=== PATIENT | male | born 2000 | race Caucasian/White ===

== ENCOUNTER 2023-04-04 19:58 | Inpatient (IN) ==
[2023-04-04 20:33] LABS: Basophils # (auto) 0.03 K/uL (0-0.2); Basophils % (auto) 0.4 %; Hemoglobin 13.6 g/dl (14.0-18.0); Immature Granulocytes # (auto) 0.08 K/uL (0.01-0.20); Lymphocytes # (auto) 3.74 K/uL (1.2-3.4); Mean Corpuscular Hemoglobin 30.3 pg (25.0-34.0); Mean Corpuscular Volume 89.1 fL (80.0-100.0); Mean Platelet Volume 10.9 fL (9.4-12.4); Monocytes # (auto) 0.43 K/uL (0.11-0.59); Monocytes % (auto) 5.2 %; Neutrophils # (auto) 4.03 K/uL (1.40-6.50); Neutrophils % (auto) 48.4 %; Platelet Count 360 K/uL (130-400); RDW Standard Deviation 38.9 fL (36.4-46.3); Red Blood Count 4.49 M/uL (4.70-6.10); White Blood Count 8.31 K/ul (4.8-10.8)
[2023-04-04] MEDS ORDERED: SODIUM BICARB 8.4% INJ 50 MEQ/50 ML SYR IV STA ×4 (20:40→23:11)
--- NOTE | 2023-04-04 20:40 | Emergency Department Note ---
Impression & Plan Seizure, Overdose, Electrolyte abnormality ED Provider Note NAME: RONNIE HATHAWAY III AGE: 22 SEX: M : 2000 ARRIVES VIA: Ambulance INFORMANT: Patient ED PROVIDER(S): Jonathan Paul DO CHIEF COMPLAINT: Seizure HPI: Patient is a 20-year-old male who presents to the ER for seizure. He notes that this occurred just prior to arrival. He was sitting on the couch with his girlfriend and had a 6-minute tonic-clonic seizure. She notes he was foaming at the mouth. He had a postictal phase and was brought in by EMS. He admits to a mild headache. No change in vision. No chest pain or shortness of breath. He had no symptoms preceding or following the incident other than feeling tired and little bit of headache now. No weakness or numbness in the arms or legs. No other exacerbating or remitting factors. He denies taking any medications with the exception of kratom which he notes he takes about tablespoon 3 times a day. PAST MEDICAL HISTORY:See Below PAST SURGICAL HISTORY:See Below FAMILY HISTORY:See Below SOCIAL HISTORY:See Below HOME MEDICATIONS:See Below ALLERGIES:See Below VITALS:See Below PHYSICAL EXAMINATION: GENERAL: Sitting up in bed, alert, well appearing, well nourished, no distress, non-toxic EYE EXAM: normal conjunctiva. PERRL and EOM's intact. OROPHARYNX: no exudate, no erythema, lips, buccal mucosa, and tongue normal and mucous membranes are moist NECK: supple, no nuchal rigidity, no adenopathy, non-tender LUNGS: Clear to auscultation. Normal chest wall mechanics HEART: no murmurs, S1 normal and S2 normal ABDOMEN: abdomen soft, non-tender, normo-active bowel sounds, no masses, no rebound or guarding. BACK: Back is symmetrical on inspection and there is no deformity, no midline tenderness, no CVA tenderness. SKIN: no rashes and no bruising UPPER EXTREMITIES: upper extremities are grossly normal. LOWER EXTREMITIES: No pitting edema. NEURO EXAM: Normal sensorium, cranial nerves II-XII intact, normal speech, no weakness of arms, no weakness of legs. No drift. Finger to nose intact. Gross sensation intact. MEDICAL DECISION MAKING: Patient is a 22-year-old male who presents ER for the above-stated complaint. IV was established blood work was obtained. Initial EKG shows a prolonged QRS as well as QTc with tachycardia. With this I consulted poison control. They recommended 2 g of IV magnesium as well as 2 Amps of bicarb. Patient was given 2 L of IV fluids as well. Labs resulted and showed no significant leukocytosis or anemia. BMP with mild hypokalemia 3.1. LFTs bilirubin and troponin was negative. UA was clean. Tox was negative. Alcohol negative. COVID-negative. VBG with a pH of 7.4 repeat EKG showed improvement of the QTc but the QRS was still about 140. Heart rate did trend down. Rediscussed with [facility] control and they recommended an amp of bicarb every 5 minutes for 2-3 episodes. Following this being placed on a bicarb drip. Patient was given 40 mill equivalents of potassium orally as well as 20 mill equivalents to the IV. Consult the hospitalist for further evaluation management treatment. Discussed with Terry from the ICU. Repeat EKG showed a stable QRS duration. Terry will place the bicarb drip. Patient was admitted for further work-up. They did note they are looking for pH of 7.5-7.55. Once he goes out of this range patient should be rediscussed with poison control and likely stop bicarb. Triage Nursing notes reviewed. Limited review of prior medical records performed Vital Signs: reviewed and remarkable for HTN and tachy Differential diagnosis: Differential diagnosis includes etiologies such as infection, hypoglycemia, electrolyte abnormalities, cardiac sources, intracerebral event, trauma, toxicologic, neurologic, as well as others were entertained. ER treatment provided: See below Diagnostics interpreted by me include EKG and cardiac monitoring as listed below: -Cardiac Monitoring: An order was placed for continuous cardiac monitoring. The monitor shows a rate of 110 with sinus rhythm. -ECG: Sinus tachycardia rate of 113 Normal axis Right bundle branch block Prolonged QTc at 554 EKG #2 Sinus tachycardia rate of 109 Normal axis Right bundle branch block QTc 498 QRS 144 EKG #3 Sinus rhythm rate of 99 Normal axis QRS 140 QTc 508 Right bundle branch block -Laboratory studies:Interpreted by me as stated above in MDM and shown below. Imaging studies: Xrays: As interpreted by me:none CTs show: CT head per my read showed no obvious large bleed CT head per radiology showed no acute pathology Consultation(s): Discussed with the hospitalist, frontend engineer and [facility] poison control as described above Procedures:none Critical Care: I have personally spent 90 minutes of critical care time in the direct management of this patient. This includes bedside care, interpretation of diagnostic studies, and testing, discussion with consultants, patient, and family members, and other required patient management activities. This 90 minutes is in excess of all separately billable procedures. Past Med/Surg History Social History Smoking Status: Current some day smoker Tobacco Type: E-cigarettes / Vaping Preferred Language: Urdu Feels Safe at Home: Yes Allergies Allergies Allergy/AdvReac Type Severity Reaction Status Date / Time No Known Allergies Allergy Unverified 04/04/23 21:31 Home Meds Home Medications Medication Instructions Recorded Confirmed Herbal Dragon Powder 1 dose PO DAILY 04/04/23 04/04/23 Results & Data (ED) Vital Signs Vital Signs - 24 hr 04/04/23 20:03 04/04/23 20:06 04/04/23 20:14 Temperature 37 C Temperature Source Oral Pulse Rate 118 H 115 H Pulse Rate [Apical] 117 H Respiratory Rate 18 18 Respiratory Effort / Characteristics Non-Labored Spontaneous Non-Labored Spontaneous Respiratory Depth Normal Normal Blood Pressure 157/110 H Blood Pressure [Right Arm] 162/94 H Blood Pressure Mean 125 Blood Pressure Mean [Right Arm] 116 Blood Pressure Position Lying Blood Pressure Position [Right Arm] Lying Pulse Oximetry 99 99 Oxygen Delivery Method Room Air Room Air Sepsis Recent Fever Within 48 Hours No Sepsis New/Unexplained Change in Mental Status No Sepsis Action Taken by Nursing No Action Required 04/04/23 21:54 04/04/23 23:41 04/05/23 00:13 Temperature Temperature Source Pulse Rate Pulse Rate [Apical] 109 H 102 H 93 H Respiratory Rate 18 21 16 Respiratory Effort / Characteristics Non-Labored Spontaneous Respiratory Depth Normal Blood Pressure Blood Pressure [Right Arm] 145/89 H 143/85 H 132/89 Blood Pressure Mean Blood Pressure Mean [Right Arm] 107 104 103 Blood Pressure Position Blood Pressure Position [Right Arm] Lying Pulse Oximetry 99 99 96 Oxygen Delivery Method Room Air Room Air Room Air Sepsis Recent Fever Within 48 Hours Sepsis New/Unexplained Change in Mental Status Sepsis Action Taken by Nursing Laboratory Data 04/04/23 20:05 04/04/23 20:05 Lab Results 04/04/23 04/04/23 04/04/23 Range/Units 20:05 20:05 21:19 WBC 8.31 (4.8-10.8) K/ul RBC 4.49 L (4.70-6.10) M/uL Hgb 13.6 L (14.0-18.0) g/dl Hct 40.0 L (42.0-52.0) % MCV 89.1 (80.0-100.0) fL MCH 30.3 (25.0-34.0) pg MCHC 34.0 (32.0-36.0) g/dL RDW Std Deviation 38.9 (36.4-46.3) fL RDW Coeff of Nathalia 12.0 (11.5-14.5) % Plt Count 360 (130-400) K/uL MPV 10.9 (9.4-12.4) fL Immature Gran % (Auto) 1.0 % Neut % (Auto) 48.4 % Lymph % (Auto) 45.0 % Cross % (Auto) 5.2 % Eos % (Auto) 0.0 % Baso % (Auto) 0.4 % Neut # (Auto) 4.03 (1.40-6.50) K/uL Lymph # (Auto) 3.74 H (1.2-3.4) K/uL Cross # (Auto) 0.43 (0.11-0.59) K/uL Eos # (Auto) 0.00 (0-0.50) K/uL Baso # (Auto) 0.03 (0-0.2) K/uL Immature Gran # (Auto) 0.08 (0.01-0.20) K/uL VBG pH (7.36-7.41) VBG pCO2 (38-50) mmHg VBG pO2 mmHg VBG HCO3 mmol/L VBG O2 Saturation % VBG Base Excess mEq/L Sodium 140 (136-145) mmol/L Potassium 3.1 L (3.5-5.1) mmol/L Chloride 102 (98-107) mmol/L Carbon Dioxide 25 (21-32) mmol/L Anion Gap 13 H (3-11) BUN 10 (6-23) mg/dl Creatinine 0.94 (0.6-1.4) mg/dl Est Cr Clr Drug Dosing 90.8 ml/min Est GFR ( Amer) 132.9 ml/min Est GFR (Non-Af Amer) 114.6 ml/min BUN/Creatinine Ratio 10.6 (10-20) Glucose 127 H (70-99(Fasting)) mg/dl Calcium 8.8 (8.6-10.3) mg/dl Magnesium 1.8 (1.7-2.4) mg/dl Total Bilirubin 0.5 (0.2-1.0) mg/dl AST 16 (13-39) U/L ALT 10 (7-52) U/L Alkaline Phosphatase 67 (34-104) U/L Total Creatine Kinase 74 (30-223) U/L Troponin I High Sens 3.1 (0-20) pg/ml Total Protein 7.8 (6.0-8.3) gm/dl Albumin 5.1 H (3.4-5.0) gm/dl Globulin 2.7 (2.5-4.0) gm/dl Albumin/Globulin Ratio 1.9 (0.9-2) Urine Color Urine Appearance (Clear) Urine pH (4.5-7.5) Ur Specific [place] (1.000-1.030) Urine Protein (Negative) Urine Glucose (UA) (Negative) Urine Ketones (Negative) Urine Blood (Negative) Urine Nitrite (Negative) Urine Bilirubin (Negative) Urine Urobilinogen (Negative) Ur Leukocyte Esterase (Negative) Salicylates (3.0-30) mg/dl Urine Opiates Screen (Neg) Ur Methadone, Qual (Neg) Acetaminophen (10-30) ug/ml Urine Barbiturates (Neg) Ur Phencyclidine (PCP) (Neg) U Amphetamin/Meth Scrn (Neg) MDMA (Ecstasy) Screen (Neg) U Benzodiazepines Scrn (Neg) Ur Cocaine Metabolite (Neg) U Marijuana (THC) Screen (Neg) Ethyl Alcohol mg/dL (<10.0) mg/dl SARS-CoV-2, RNA, NAAT NEGATIVE (NEGATIVE) 04/04/23 04/04/23 04/04/23 Range/Units 22:29 22:29 22:29 WBC (4.8-10.8) K/ul RBC (4.70-6.10) M/uL Hgb (14.0-18.0) g/dl Hct (42.0-52.0) % MCV (80.0-100.0) fL MCH (25.0-34.0) pg MCHC (32.0-36.0) g/dL RDW Std Deviation (36.4-46.3) fL RDW Coeff of Nathalia (11.5-14.5) % Plt Count (130-400) K/uL MPV (9.4-12.4) fL Immature Gran % (Auto) % Neut % (Auto) % Lymph % (Auto) % Cross % (Auto) % Eos % (Auto) % Baso % (Auto) % Neut # (Auto) (1.40-6.50) K/uL Lymph # (Auto) (1.2-3.4) K/uL Cross # (Auto) (0.11-0.59) K/uL Eos # (Auto) (0-0.50) K/uL Baso # (Auto) (0-0.2) K/uL Immature Gran # (Auto) (0.01-0.20) K/uL VBG pH 7.43 H (7.36-7.41) VBG pCO2 49 (38-50) mmHg VBG pO2 50 mmHg VBG HCO3 33 mmol/L VBG O2 Saturation 80.6 % VBG Base Excess 6.9 mEq/L Sodium (136-145) mmol/L Potassium (3.5-5.1) mmol/L Chloride (98-107) mmol/L Carbon Dioxide (21-32) mmol/L Anion Gap (3-11) BUN (6-23) mg/dl Creatinine (0.6-1.4) mg/dl Est Cr Clr Drug Dosing ml/min Est GFR ( Amer) ml/min Est GFR (Non-Af Amer) ml/min BUN/Creatinine Ratio (10-20) Glucose (70-99(Fasting)) mg/dl Calcium (8.6-10.3) mg/dl Magnesium (1.7-2.4) mg/dl Total Bilirubin (0.2-1.0) mg/dl AST (13-39) U/L ALT (7-52) U/L Alkaline Phosphatase (34-104) U/L Total Creatine Kinase (30-223) U/L Troponin I High Sens (0-20) pg/ml Total Protein (6.0-8.3) gm/dl Albumin (3.4-5.0) gm/dl Globulin (2.5-4.0) gm/dl Albumin/Globulin Ratio (0.9-2) Urine Color Urine Appearance (Clear) Urine pH (4.5-7.5) Ur Specific [place] (1.000-1.030) Urine Protein (Negative) Urine Glucose (UA) (Negative) Urine Ketones (Negative) Urine Blood (Negative) Urine Nitrite (Negative) Urine Bilirubin (Negative) Urine Urobilinogen (Negative) Ur Leukocyte Esterase (Negative) Salicylates < 3.0 L (3.0-30) mg/dl Urine Opiates Screen (Neg) Ur Methadone, Qual (Neg) Acetaminophen < 3 L (10-30) ug/ml Urine Barbiturates (Neg) Ur Phencyclidine (PCP) (Neg) U Amphetamin/Meth Scrn (Neg) MDMA (Ecstasy) Screen (Neg) U Benzodiazepines Scrn (Neg) Ur Cocaine Metabolite (Neg) U Marijuana (THC) Screen (Neg) Ethyl Alcohol mg/dL < 10.0 (<10.0) mg/dl SARS-CoV-2, RNA, NAAT (NEGATIVE) 04/04/23 04/04/23 Range/Units Unknown Unknown WBC (4.8-10.8) K/ul RBC (4.70-6.10) M/uL Hgb (14.0-18.0) g/dl Hct (42.0-52.0) % MCV (80.0-100.0) fL MCH (25.0-34.0) pg MCHC (32.0-36.0) g/dL RDW Std Deviation (36.4-46.3) fL RDW Coeff of Nathalia (11.5-14.5) % Plt Count (130-400) K/uL MPV (9.4-12.4) fL Immature Gran % (Auto) % Neut % (Auto) % Lymph % (Auto) % Cross % (Auto) % Eos % (Auto) % Baso % (Auto) % Neut # (Auto) (1.40-6.50) K/uL Lymph # (Auto) (1.2-3.4) K/uL Cross # (Auto) (0.11-0.59) K/uL Eos # (Auto) (0-0.50) K/uL Baso # (Auto) (0-0.2) K/uL Immature Gran # (Auto) (0.01-0.20) K/uL VBG pH (7.36-7.41) VBG pCO2 (38-50) mmHg VBG pO2 mmHg VBG HCO3 mmol/L VBG O2 Saturation % VBG Base Excess mEq/L Sodium (136-145) mmol/L Potassium (3.5-5.1) mmol/L Chloride (98-107) mmol/L Carbon Dioxide (21-32) mmol/L Anion Gap (3-11) BUN (6-23) mg/dl Creatinine (0.6-1.4) mg/dl Est Cr Clr Drug Dosing ml/min Est GFR ( Amer) ml/min Est GFR (Non-Af Amer) ml/min BUN/Creatinine Ratio (10-20) Glucose (70-99(Fasting)) mg/dl Calcium (8.6-10.3) mg/dl Magnesium (1.7-2.4) mg/dl Total Bilirubin (0.2-1.0) mg/dl AST (13-39) U/L ALT (7-52) U/L Alkaline Phosphatase (34-104) U/L Total Creatine Kinase (30-223) U/L Troponin I High Sens (0-20) pg/ml Total Protein (6.0-8.3) gm/dl Albumin (3.4-5.0) gm/dl Globulin (2.5-4.0) gm/dl Albumin/Globulin Ratio (0.9-2) Urine Color Yellow Urine Appearance Clear (Clear) Urine pH 8.5 H (4.5-7.5) Ur Specific [place] 1.007 (1.000-1.030) Urine Protein Negative (Negative) Urine Glucose (UA) Negative (Negative) Urine Ketones Negative (Negative) Urine Blood Negative (Negative) Urine Nitrite Negative (Negative) Urine Bilirubin Negative (Negative) Urine Urobilinogen Negative (Negative) Ur Leukocyte Esterase Negative (Negative) Salicylates (3.0-30) mg/dl Urine Opiates Screen Neg (Neg) Ur Methadone, Qual Neg (Neg) Acetaminophen (10-30) ug/ml Urine Barbiturates Neg (Neg) Ur Phencyclidine (PCP) Neg (Neg) U Amphetamin/Meth Scrn Neg (Neg) MDMA (Ecstasy) Screen Neg (Neg) U Benzodiazepines Scrn Neg (Neg) Ur Cocaine Metabolite Neg (Neg) U Marijuana (THC) Screen Neg (Neg) Ethyl Alcohol mg/dL (<10.0) mg/dl SARS-CoV-2, RNA, NAAT (NEGATIVE) Administered Medications Discontinued Medications Magnesium Sulfate/Dextrose (Magnesium Sulfate / D5w) 1 gm in 100 mls @ 100 mls/hr IV Q1H QIAN Stop: 04/04/23 22:39 Last Infusion: 04/04/23 23:25 Dose: 0 mls/hr Documented By: Admin: 04/04/23 22:19 Dose: 100 mls/hr Documented By: Infusion: 04/04/23 22:18 Dose: 0 mls/hr Documented By: Admin: 04/04/23 21:16 Dose: 100 mls/hr Documented By: CC Sodium Chloride (Nss 1000ml) 2,000 mls @ 999 mls/hr IV .Q2H1M ONE Stop: 04/04/23 22:44 Last Infusion: 04/05/23 00:13 Dose: 0 mls/hr Documented By: Admin: 04/04/23 21:12 Dose: 999 mls/hr Documented By: CC Potassium Chloride (K Alphonso / Wtr) 10 meq in 100 mls @ 100 mls/hr IV Q1H QIAN Stop: 04/05/23 00:14 Last Admin: 04/05/23 00:11 Dose: 100 mls/hr Documented By: Infusion: 04/04/23 23:25 Dose: 0 mls/hr Documented By: Admin: 04/04/23 22:21 Dose: 100 mls/hr Documented By: CC Potassium Chloride (Potassium Chloride Crtab 20 Meq Tabcr) 40 meq PO NOW STA Stop: 04/04/23 22:10 Last Admin: 04/04/23 22:20 Dose: 40 meq Documented By: CC Sodium Bicarbonate (Sodium Bicarb 8.4% Inj 50 Meq/50 Ml Syr) 50 meq IV NOW STA Stop: 04/04/23 20:41 Last Admin: 04/04/23 21:12 Dose: 50 meq Documented By: CC Sodium Bicarbonate (Sodium Bicarb 8.4% Inj 50 Meq/50 Ml Syr) 50 meq IV NOW STA Stop: 04/04/23 20:55 Last Admin: 04/04/23 21:18 Dose: 50 meq Documented By: CC Sodium Bicarbonate (Sodium Bicarb 8.4% Inj 50 Meq/50 Ml Syr) 50 meq IV NOW STA Stop: 04/04/23 23:10 Last Admin: 04/04/23 23:36 Dose: 50 meq Documented By: ASW Sodium Bicarbonate (Sodium Bicarb 8.4% Inj 50 Meq/50 Ml Syr) 50 meq IV NOW STA Stop: 04/04/23 23:12 Last Admin: 04/04/23 23:43 Dose: 50 meq Documented By: ASW Imaging Data Radiologist's Impression: Head CT 04/04/23 20:41 Exam(s): CT HEAD Without Contrast EXAM: CT Head Without Intravenous Contrast CLINICAL HISTORY: Reason for exam: liu. TECHNIQUE: Axial computed tomography images of the head/brain without intravenous contrast. CTDI is 38.78 mGy and DLP is 546.36 mGy-cm. Automated exposure control was utilized for the study. A dose lowering technique was utilized adhering to the principles of ALARA. COMPARISON: No relevant prior studies available. FINDINGS: No acute intracranial hemorrhage. No midline shift or mass effect. The territorial castañeda-white matter differentiation is maintained throughout. The ventricles and sulci are commensurate with age. The visualized orbits appear grossly unremarkable. The calvarium is intact. The visualized paranasal sinuses and mastoid air cells are grossly clear. IMPRESSION: No acute intracranial hemorrhage, midline shift, or mass effect. Electronically signed by: Stewart Tapia MD 04/04/23 22:12 PM Discharge Plan Visit Data Chief Complaint: Seizure Stated Complaint: SEIZURE ED Provider: Jonathan Paul Discharge Problem: Seizure, Overdose, Electrolyte abnormality Patient Disposition: Admitted As Inpatient Discharge Instructions Interventions: ED Discharge Assessment Last Done: 04/05/23 00:25 Forms Stand Alone Forms: [employer] Prescriptions Prescriptions: No Action Herbal Dragon Powder 1 dose PO DAILY Referrals Referrals: PCP,NO [Primary Care Provider] -
[2023-04-04] MEDS ORDERED: SODIUM CHLORIDE 0.9% 1000ML 2,000 ML IV ONE (20:44)
[2023-04-04 21:01] LABS: Albumin Level 5.1 gm/dl (3.4-5.0); Bilirubin,Total 0.5 mg/dl (0.2-1.0); Calcium 8.8 mg/dl (8.6-10.3); Potassium 3.1 mmol/L (3.5-5.1)
[2023-04-04 21:07] LABS: Albumin Globulin Ratio 1.9 (0.9-2); BUN Creatinine Ratio 10.6 (10-20); Creatinine Clr Calc Pharmacy 90.8 ml/min; Est GFR (African American) 132.9 ml/min; Est GFR (Non-African American) 114.6 ml/min; Globulin 2.7 gm/dl (2.5-4.0); Total Protein 7.8 gm/dl (6.0-8.3)
[2023-04-04] MEDS: MAGNESIUM SULFATE / D5W 1 GM/100 ML BAG IV SCH ×2 (21:16→22:19)
[2023-04-04 21:37] LABS: Magnesium 1.8 mg/dl (1.7-2.4)
[2023-04-04] MEDS ORDERED: POTASSIUM CHLORIDE CRTAB 20 MEQ TABCR PO STA (22:09)
--- NOTE | 2023-04-04 22:13 | CT Scan Report ---
Exam(s): CT HEAD Without Contrast EXAM: CT Head Without Intravenous Contrast CLINICAL HISTORY: Reason for exam: liu. TECHNIQUE: Axial computed tomography images of the head/brain without intravenous contrast. CTDI is 38.78 mGy and DLP is 546.36 mGy-cm. Automated exposure control was utilized for the study. A dose lowering technique was utilized adhering to the principles of ALARA. COMPARISON: No relevant prior studies available. FINDINGS: No acute intracranial hemorrhage. No midline shift or mass effect. The territorial castañeda-white matter differentiation is maintained throughout. The ventricles and sulci are commensurate with age. The visualized orbits appear grossly unremarkable. The calvarium is intact. The visualized paranasal sinuses and mastoid air cells are grossly clear. IMPRESSION: No acute intracranial hemorrhage, midline shift, or mass effect. Electronically signed by: Stewart Tapia MD 04/04/23 22:12 PM
[2023-04-04] MEDS: POTASSIUM CHLORIDE / WTR 10 MEQ/100 ML PLCT IV SCH (22:21)
[2023-04-04 22:48] LABS: Troponin I High Sensitivity 3.1 pg/ml (0-20)
[2023-04-04 22:54] LABS: Base Excess VBG 6.9 mEq/L; HCO3 VBG 33 mmol/L; Oxygen Saturation VBG 80.6 %; PCO2 VBG 49 mmHg (38-50); PO2 VBG 50 mmHg; pH VBG 7.43 (7.36-7.41)
[2023-04-04 23:12] LABS: Acetaminophen < 3 ug/ml (10-30); Salicylate < 3.0 mg/dl (3.0-30)
[2023-04-04] MEDS ORDERED: MAGNESIUM SULFATE / D5W 1 GM/100 ML BAG IV ONE (23:45)
[2023-04-04 23:57] LABS: Appearance Urine Clear (Clear); Bilirubin Urine Negative (Negative); Blood Urine Negative (Negative); Color Urine Yellow; Glucose Urine UA Negative (Negative); Ketones Urine Negative (Negative); Leukocyte Esterase Urine Negative (Negative); Nitrite Urine Negative (Negative); Protein Urine Negative (Negative); Specific Gravity Urine 1.007 (1.000-1.030); Urobilinogen Urine Negative (Negative); pH Urine 8.5 (4.5-7.5)
--- NOTE | 2023-04-05 00:06 | Critical Care Consultation ---
Date of Consultation April 04, 2023 Assessment & Plan (1) Seizure: (2) Overdose: (3) Electrolyte abnormality: Plan Reason Critically Ill: 22 YOM admitted to ICU for reported seizure like activity following use of Kratom. ICU need for alkalinization and normalizing of ECG. Neuro - Seizure like activity, Anxiety CAM ICU: - Negative - Likely related to Kratom use may be complicated by caffeine ingestion- Kratom use is for his anxiety. - Urine tox screen is negative - Alkalinizing therapy as below - Poison control- recommendations- [place] poison control and they recommended an amp of bicarb every 5 minutes for 2-3 episodes.pH of 7.5-7.55 (DONE in EMD)- initiate NACHO3 Infusion. - on arrival to ICU PH 7.57 and QRS interval 0.134- NAHCO3 infusion until QRS interval is <01.2 and/or PH goes above 6.0. - IF QRS interval does not decrease with above therapy - consider Cardiology consultation to eval for underlying structural pathology - If further seizures occur- repeat non con head CT r/o hemorrhage and consider MRI seizure protocol. Cardiac - Abnormal ECG - Patient wit IL prolonged QRS (0.134) and QTc (462) @2351- optimize potassium and magnesium - alkalinization as above and below Respiratory - No acute needs - follow pulmonary status- Kratom may have possible pulmonary effect GI - NO acute needs - LFTs currently stable - repeat in morning- Kratom may have effects on liver function RENAL/LYTES - Hypokalemia, Hypomagnesemia - Replete K to ~ 4.0 and Mag to ~20 - Follow induced metabolic alkalosis- PH q4 and BMP q4 - - Poison control- recommendations- [place] poison control and they recommended an amp of bicarb every 5 minutes for 2-3 episodes.pH of 7.5-7.55 (DONE in EMD)- initiate NACHO3 Infusion. - on arrival to ICU PH 7.57 and QRS interval 0.134- NAHCO3 infusion until QRS interval is <01.2 and/or PH goes above 6.0. - Poison control updated - IF QRS interval does not decrease with above therapy - consider Cardiology consultation to eval for underlying structural pathology - NA level 143 on - recheck as initial contaminated - continue NAHCO3 infusion and follow q4- allow patient to drink water to thirst - If further seizures occur- repeat non con head CT r/o hemorrhage and consider MRI seizure protocol. - No acute needs ENDO - No acute needs HEME - No acute needs ID - No current concerns for infection LINES/IV ACCESS - PIV Continue use of these lines DVT PROPHYLAXIS - SCDS DISPO: ICU until ECG normalized I have personally spent 40 minutes of critical care time in the direct management of this patient. This is a life/limb threatening event. This includes time spent evaluating patient, direct bedside care, chart review, placing orders, interpretation of diagnostic studies, discussion with consultants, patient, and family members, as well as other required patient management activities. This time is exclusive of all separately billable procedures, separate from and in addition to any other critical care service time. Thank you for allowing us to participate in the care of this patient. Please refer to my attending physician's documentation for any further recommendations. History of Present Illness Reason for Consultation: Seizure and abnormal ECG following Kratom use Requesting Physician: Bean Weinstein Attending Physician: Bean Weinstein History of Present Illness 22 YOM with no reported medical history and reports no medications at home. Patient does report daily Kratom use for the past 2 years as well as caffeine intake with coffee and energy drinks to which he estimates to be 600-700 mg of Caffeine per day. Kratom use he estimates at 3 Tablespoons 2-3 times per day. He endorses no other recreational or synthetic drug use. Patient was brought in today for concerns of seizure activity while at home following Kratom use. He reports laying on the couch with his girlfriend feeling fine and was told by his girlfriend that his eyes rolled back and both his arms were straight out in front of him and secretions comming from mouth. He remembers waking up to her yelling at him to wake up. He did not bite his tongue and did not lose bowel or bladder function. Reported that this lasted 6 minutes. In the EMD the patient had routine labs performed, urine tox scree (pending), head CT and chest x-ray performed. Poison control was contacted. Recommendations were made to alkanolize the patient to PH of 7.5-7.55 with NAHCO3 pushes until the QRS complex was 0.12 or better. Optimize electrolytes- he was given oral and IV potassium as well as IV magnesium. Patient will be admitted to the ICU for following of his ECG, acid base status and neurological status. Patient is FULL CODE Allergies Allergy/AdvReac Type Severity Reaction Status Date / Time No Known Allergies Allergy Unverified 04/04/23 21:31 Home Medications Medication Instructions Recorded Confirmed Type Herbal Dragon Powder 1 dose PO DAILY 04/04/23 04/04/23 History Patient History Social History Smoking Status: Current some day smoker Tobacco Type: E-cigarettes / Vaping Second Hand Exposure: Yes; Do You Dip or Chew Tobacco: No; Tobacco Cessation Education Requested by Patient: No Hx Alcohol Use: No Hx Substance Use: Yes Last Used Substance Other:: This morning Substance Use Type Other:: Kratoarlyn Preferred Language: Ethiopian Communication Ability: Effective High Voltage Electrician Required: No Beliefs That Will Affect Care: None Current Living Situation Comment: lives w/ GF Other Information That Helps Us Care for You: No Feels Safe at Home: Yes Safety Concerns: Feels Safe At This Time Assistive Devices: None Review of Systems Review of Systems: REVIEW OF SYSTEMS: Constitutional: No fever, sweats or chills Eyes: No diplopia, no worsening or blurred vision ENT: normal hearing, no trouble swallowing Respiratory: No cough, sputum, dyspnea at rest or on exertion Cardiovascular: No chest pain, tightness or palpitations Abdomen: No pain, nausea, vomiting, diarrhea or constipation Musculoskeletal: No joint pain, calf pain, swelling Neurologic: No weakness, numbness/tingling, or balance problems Skin: No rash or itch Physical Exam Physical Exam: PHYSICAL EXAM: General: awake, alert, no apparent distress Head: Normocephalic, atraumatic ENT: PERRLA, EOMI, no pharyngeal exudate, mucous membranes moist Neuro: AAO x 3, speech clear and appropriate, strength intact bilaterally 5/5, sensation intact and equal all extremities and dermatomes, no pronator drift Chest: equal rise and fall of the chest, no accessory muscle use, no heaves or thrills, Clear to auscultation, on room air, Cardiac: Regular rate and rhythm, telemetry reviewed- sinus tachycardia, skin warm dry, cap refill <3 seconds, peripheral pulses +2 no JVD, no murmur, GI: NABS x 4 quadrants, soft, nontender to palpation, no rebound, guarding or tenderness : Spontaneously voiding, no pain, no CVA tenderness, Extremities: Normal inspection, no peripheral edema or erythema, calfs nontender to palpation Skin: no rash or erythema Results & Data Results & Data Vital Signs (Past 12 Hours) Vital Signs Temp Pulse Pulse Resp BP BP Pulse Ox 04/04/23 23:41 102 H 21 143/85 H 99 04/04/23 21:54 109 H 18 145/89 H 99 04/04/23 20:14 117 H 18 162/94 H 99 04/04/23 20:06 115 H 04/04/23 20:03 37 C 118 H 18 157/110 H 99 O2 Del Method 04/04/23 23:41 Room Air 04/04/23 21:54 Room Air 04/04/23 20:14 Room Air 04/04/23 20:06 04/04/23 20:03 Room Air Laboratory Results Abnormal lab results 04/04/23 04/04/23 04/04/23 Range/Units 20:05 20:05 22:29 RBC 4.49 L (4.70-6.10) M/uL Hgb 13.6 L (14.0-18.0) g/dl Hct 40.0 L (42.0-52.0) % Lymph # (Auto) 3.74 H (1.2-3.4) K/uL VBG pH 7.43 H (7.36-7.41) Potassium 3.1 L (3.5-5.1) mmol/L Anion Gap 13 H (3-11) Glucose 127 H (70-99(Fasting)) mg/dl Albumin 5.1 H (3.4-5.0) gm/dl Urine pH (4.5-7.5) Salicylates (3.0-30) mg/dl Acetaminophen (10-30) ug/ml 04/04/23 04/04/23 Range/Units 22:29 Unknown RBC (4.70-6.10) M/uL Hgb (14.0-18.0) g/dl Hct (42.0-52.0) % Lymph # (Auto) (1.2-3.4) K/uL VBG pH (7.36-7.41) Potassium (3.5-5.1) mmol/L Anion Gap (3-11) Glucose (70-99(Fasting)) mg/dl Albumin (3.4-5.0) gm/dl Urine pH 8.5 H (4.5-7.5) Salicylates < 3.0 L (3.0-30) mg/dl Acetaminophen < 3 L (10-30) ug/ml Diagnostic Findings Head CT 04/04/23 20:41 Exam(s): CT HEAD Without Contrast EXAM: CT Head Without Intravenous Contrast CLINICAL HISTORY: Reason for exam: liu. TECHNIQUE: Axial computed tomography images of the head/brain without intravenous contrast. CTDI is 38.78 mGy and DLP is 546.36 mGy-cm. Automated exposure control was utilized for the study. A dose lowering technique was utilized adhering to the principles of ALARA. COMPARISON: No relevant prior studies available. FINDINGS: No acute intracranial hemorrhage. No midline shift or mass effect. The territorial castañeda-white matter differentiation is maintained throughout. The ventricles and sulci are commensurate with age. The visualized orbits appear grossly unremarkable. The calvarium is intact. The visualized paranasal sinuses and mastoid air cells are grossly clear. IMPRESSION: No acute intracranial hemorrhage, midline shift, or mass effect. Electronically signed by: Stewart Tapia MD 04/04/23 22:12 PM Medications Administered Home Medications Herbal Dragon Powder 1 dose PO DAILY 04/04/23 [History Confirmed 04/04/23] Active Medications Magnesium Sulfate/Dextrose (Magnesium Sulfate / D5w) 1 gm in 100 mls @ 50 mls/hr IV ONE ONE Stop: 04/05/23 01:44 Discontinued Medications Magnesium Sulfate/Dextrose (Magnesium Sulfate / D5w) 1 gm in 100 mls @ 100 mls/hr IV Q1H QIAN Stop: 04/04/23 22:39 Last Infusion: 04/04/23 23:25 Dose: 0 mls/hr Documented By: Admin: 04/04/23 22:19 Dose: 100 mls/hr Documented By: Infusion: 04/04/23 22:18 Dose: 0 mls/hr Documented By: Admin: 04/04/23 21:16 Dose: 100 mls/hr Documented By: CC Sodium Chloride (Nss 1000ml) 2,000 mls @ 999 mls/hr IV .Q2H1M ONE Stop: 04/04/23 22:44 Last Infusion: 04/05/23 00:13 Dose: 0 mls/hr Documented By: Admin: 04/04/23 21:12 Dose: 999 mls/hr Documented By: CC Potassium Chloride (K Alphonso / Wtr) 10 meq in 100 mls @ 100 mls/hr IV Q1H QIAN Stop: 04/05/23 00:14 Last Admin: 04/05/23 00:11 Dose: 100 mls/hr Documented By: Infusion: 04/04/23 23:25 Dose: 0 mls/hr Documented By: Admin: 04/04/23 22:21 Dose: 100 mls/hr Documented By: CC Potassium Chloride (Potassium Chloride Crtab 20 Meq Tabcr) 40 meq PO NOW STA Stop: 04/04/23 22:10 Last Admin: 04/04/23 22:20 Dose: 40 meq Documented By: CC Sodium Bicarbonate (Sodium Bicarb 8.4% Inj 50 Meq/50 Ml Syr) 50 meq IV NOW STA Stop: 04/04/23 20:41 Last Admin: 04/04/23 21:12 Dose: 50 meq Documented By: CC Sodium Bicarbonate (Sodium Bicarb 8.4% Inj 50 Meq/50 Ml Syr) 50 meq IV NOW STA Stop: 04/04/23 20:55 Last Admin: 04/04/23 21:18 Dose: 50 meq Documented By: CC Sodium Bicarbonate (Sodium Bicarb 8.4% Inj 50 Meq/50 Ml Syr) 50 meq IV NOW STA Stop: 04/04/23 23:10 Last Admin: 04/04/23 23:36 Dose: 50 meq Documented By: ASW Sodium Bicarbonate (Sodium Bicarb 8.4% Inj 50 Meq/50 Ml Syr) 50 meq IV NOW STA Stop: 04/04/23 23:12 Last Admin: 04/04/23 23:43 Dose: 50 meq Documented By: ASW ECG Additional Comments: 04-APR-2023 23:51:07 Normal sinus rhythm Possible Left atrial enlargement Non-specific intra- ventricular conduction block Abnormal ECG When compared with ECG of 04-APR-2023 21:50, (unconfirmed) No significant change was found, Vent. rate 99 BPM IL interval 202 ms QRS duration 140 ms QT/QTc 396/508 ms P-R-T axes 65 62 55 05-APR-2023 00:48:46 Normal sinus rhythm Possible Left atrial enlargement Right bundle branch block Abnormal ECG When compared with ECG of 04-APR-2023 23:51, (unconfirmed) No significant change was found Vent. rate 96 BPM IL interval 202 ms QRS duration 134 ms QT/QTc 366/462 ms P-R-T axes 71 73 46 Coding Level of Care Code 50006 CRITICAL CARE -74M Diagnoses Seizure R56.9 Overdose T50.901A Electrolyte abnormality E87.8
[2023-04-05] MEDS: POTASSIUM CHLORIDE / WTR 10 MEQ/100 ML PLCT IV SCH (00:11)
[2023-04-05 00:24] LABS: Amphetamines+Metham, Urine Neg (Neg); Barbiturates, Urine Neg (Neg); Benzodiazepine, Urine Neg (Neg); Cocaine, Urine Neg (Neg); MDMA (Ecstacy), Urine Neg (Neg); Methadone, Urine Neg (Neg); Opiate, Urine Neg (Neg); Phencyclidine, Urine Neg (Neg)
[2023-04-05] MEDS ORDERED: NITROGLYCERIN SL 0.4 MG/TAB TAB SL PRN (00:49)
[2023-04-05] MEDS ORDERED: SODIUM CHLORIDE 0.9% 1000ML 1,000 ML IV SCH (00:49)
[2023-04-05] MEDS ORDERED: SODIUM BICARB 8.4% INJ 50 MEQ/50 ML SYR IV STA ×2 (01:01→05:43)
[2023-04-05] MEDS ORDERED: STAT IV STA ×2 (01:02→02:10)
--- NOTE | 2023-04-05 01:05 | History and Physical Report ---
DATE OF ADMISSION: 04/04/2023. CHIEF COMPLAINT: Seizures. HISTORY OF PRESENT ILLNESS: A 22-year-old male with no past medical history who presents with seizure episode around 07:30 p.m. Was eating dinner when he suddenly was stiff and started shaking his body and was breathing hard.Foaming around mouth. No biting of the tongue or no incontinence during the episode. It lasted for about 6 minutes and he woke up and he was confused. He said when he was in the ambulance, he was more alert and awake. Currently, he is back to his baseline. He is using kratom herbal supplement 3 spoons 3 times a day for 2 years. His potassium was 3.1, magnesium was 1.8. His ethyl alcohol less than 10, salicylate less than 3, acetaminophen less than 3. Urine drug screen is pending. CT of the head was okay. EKG showed wide QRS and prolonged QTc. ER talked to Poison Control and he was given 2 amps of bicarbonate. On repeat EKG, QRS was still widened. Venous blood gas pH was 7.43 and Poison Control recommended to give bicarbonate every 2-3 minutes until QRS is less than 120 and the patient was getting 2 amps of bicarbonate now and repeat EKG . the patient is getting significant bicarbonate will be admitted to ICU. The patient denies any chest pain. No shortness of breath, no cough, no fevers, no headache, no dizziness. Feeling somewhat anxious. No earache, no runny nose, no sore throat. Appetite is okay. Normal bowel and bladder movements. Currently, resting comfortably and hemodynamically stable. He never had seizures in the past. ALLERGIES: No known drug allergies. PAST MEDICAL HISTORY: None. PAST SURGICAL HISTORY: None. MEDICATIONS: Herbal supplement and other medications. FAMILY HISTORY: Significant for his maternal grandfather had seizures. Great grandmother has diabetes. SOCIAL HISTORY: Vapes tobacco daily in the night. Denies any alcohol use or drug use. REVIEW OF SYSTEMS: As per HPI. Rest of the review of systems is negative. PHYSICAL EXAMINATION: GENERAL: The patient is thin and frail, not in acute distress. VITAL SIGNS: Temperature 37, pulse 102, respiratory rate 21, blood pressure 143/85, oxygen 99% on room air. HEENT: Pupils equal, round and reactive to light. Oral mucosa moist. NECK: No JVD, no neck masses. CARDIOVASCULAR: S1 and S2 heard. Regular rate and rhythm. No murmur, no gallop. RESPIRATORY SYSTEM: Normal AP diameter. No accessory muscle use. No wheezing, no crackles. ABDOMEN: Soft, bowel sounds present, nontender, no distention. CENTRAL NERVOUS SYSTEM: Cranial nerves II-XII grossly intact, nonfocal. EXTREMITIES: No edema, no erythema. LABORATORY DATA: WBC 8.3, hemoglobin 13.6, hematocrit 40, platelets 360. Venous blood gas, pH of 7.43, pCO2 of 49. Sodium 140, potassium 3.1, chloride 102, bicarbonate 25, BUN 10, creatinine 0.9, serum glucose 127, calcium 8.8, magnesium 1.8, total bilirubin 0.5, AST 16, ALT 10, alkaline phosphatase 67, total creatine kinase 74. Troponin I high sensitivity 3.1. Salicylate less than 3. Acetaminophen less than 3. Ethyl alcohol less than 10. SARS-COVID rapid test negative. IMAGING DATA: CT of the head without contrast, no acute intracranial abnormality. Chest x-ray, no acute findings. EKG: IEKG, normal sinus rhythm, 99, left atrial enlargement with QRS of 140 and QTc of 508. . ASSESSMENT AND PLAN: A 22-year-old male who presents with seizures. 1. Seizures. The patient is on kratom supplement, can cause seizures and possible cardio toxic. ER talked to Poison Control and getting bicarbonate to correct his QRS and also some magnesium and potassium to correct his QTc. Has received significant bicarbonate and is getting admitted to ICU. Closely monitor. Seizure precautions. We will get EEG, echocardiogram. Monitor troponins and neuro consult in a.m. Closely monitor in the ICU. Appreciate critical care help. 2. Electrolyte abnormality. replace. will follow labs. 2. Deep venous thrombosis prophylaxis. Sequential compression devices for now. DISPOSITION: Admit to ICU. Level 1 full code. Job ID: [id number] [facility]
[2023-04-05] MEDS: SODIUM BICARBONATE 8.4% 150 MEQ in DEXTROSE 5% 1,000 ML IV SCH ×4 (01:20→14:08)
[2023-04-05 01:40] LABS: BUN Creatinine Ratio 12.9 (10-20); Blood Urea Nitrogen 9 mg/dl (6-23); Calcium 7.2 mg/dl (8.6-10.3); Carbon Dioxide > 45 mmol/L (21-32); Chloride 105 mmol/L (98-107); Est GFR (African American) > 150.0 ml/min; Glucose 97 mg/dl (70-99(Fasting)); Potassium 3.4 mmol/L (3.5-5.1); Sodium 168 mmol/L (136-145); Troponin I High Sensitivity 9.1 pg/ml (0-20)
[2023-04-05] MEDS ORDERED: POTASSIUM CHLORIDE CRTAB 20 MEQ TABCR PO STA ×2 (02:10→05:41)
[2023-04-05 02:26] LABS: BUN Creatinine Ratio 10.1 (10-20); Calcium 7.7 mg/dl (8.6-10.3); Creatinine Clr Calc Pharmacy 108.1 ml/min; Est GFR (African American) 147.7 ml/min; Est GFR (Non-African American) 127.5 ml/min; Potassium 3.4 mmol/L (3.5-5.1)
[2023-04-05] MEDS ORDERED: CALCIUM GLUCONATE 10% 1,000 MG in DEXTROSE 5% 50 ML IV ONE (02:30)
[2023-04-05 04:29] LABS: Anion Gap 8 (3-11); BUN Creatinine Ratio 9.9 (10-20); Blood Urea Nitrogen 7 mg/dl (6-23); Carbon Dioxide 29 mmol/L (21-32); Chloride 104 mmol/L (98-107); Creatinine Clr Calc Pharmacy 120.3 ml/min; Est GFR (African American) > 150.0 ml/min; Est GFR (Non-African American) 133.2 ml/min; Glucose 113 mg/dl (70-99(Fasting)); Potassium 3.6 mmol/L (3.5-5.1); Sodium 141 mmol/L (136-145)
[2023-04-05] MEDS ORDERED: SODIUM BICARB 8.4% INJ 50 MEQ/50 ML SYR IV ONE (05:49)
--- NOTE | 2023-04-05 07:43 | XRay Report ---
XR chest 1V portable CLINICAL HISTORY: Seizure. COMPARISON STUDY: No previous studies for comparison. FINDINGS: Lung volumes are normal. Lungs are clear. There is no pneumothorax or pleural effusion. Car diac size is normal. Mediastinal contours are normal. There is no evidence for pulmonary edema. IMPRESSION: No acute cardiopulmonary findings. ACT 112: Negative or not required by law. Electronically signed by: Kevin Evans M.D. 04/05/2023 7:41 AM
[2023-04-05 08:36] LABS: Basophils # (auto) 0.01 K/uL (0-0.2); Basophils % (auto) 0.1 %; Hematocrit (blood only) 39.3 % (42.0-52.0); Hemoglobin 13.2 g/dl (14.0-18.0); Immature Granulocytes # (auto) 0.03 K/uL (0.01-0.20); Immature Granulocytes % (auto) 0.4 %; Lymphocytes # (auto) 2.07 K/uL (1.2-3.4); Lymphocytes % (auto) 26.8 %; Mean Corpuscular Hemoglobin 30.6 pg (25.0-34.0); Mean Corpuscular Hgb Conc 33.6 g/dL (32.0-36.0); Mean Corpuscular Volume 91.2 fL (80.0-100.0); Mean Platelet Volume 10.8 fL (9.4-12.4); Monocytes # (auto) 0.54 K/uL (0.11-0.59); Neutrophils # (auto) 5.08 K/uL (1.40-6.50); Neutrophils % (auto) 65.7 %; Platelet Count 264 K/uL (130-400); RDW Coefficient of Variation 11.9 % (11.5-14.5); RDW Standard Deviation 39.8 fL (36.4-46.3); Red Blood Count 4.31 M/uL (4.70-6.10); White Blood Count 7.73 K/ul (4.8-10.8)
[2023-04-05 08:53] LABS: Anion Gap 6 (3-11); BUN Creatinine Ratio 8.8 (10-20); Blood Urea Nitrogen 6 mg/dl (6-23); Calcium 8.5 mg/dl (8.6-10.3); Carbon Dioxide 32 mmol/L (21-32); Chloride 103 mmol/L (98-107); Creatinine Clr Calc Pharmacy 125.6 ml/min; Est GFR (African American) > 150.0 ml/min; Est GFR (Non-African American) 135.6 ml/min; Glucose 106 mg/dl (70-99(Fasting)); Magnesium 1.9 mg/dl (1.7-2.4); Phosphorus 3.5 mg/dl (2.5-4.9); Potassium 3.5 mmol/L (3.5-5.1); Sodium 141 mmol/L (136-145)
[2023-04-05 09:00] LABS: Troponin I High Sensitivity 5.3 pg/ml (0-20)
--- NOTE | 2023-04-05 09:38 | Critical Care Progress Note ---
Date of Service April 05, 2023 Assessment & Plan (1) Seizure: (2) Overdose: (3) Electrolyte abnormality: Plan Reason Critically Ill: 22 YOM admitted to ICU for reported seizure like activity following use of Kratom. ICU need for alkalinization and normalizing of ECG. Neuro - Seizure like activity, Anxiety CAM ICU: - Negative - Likely related to Kratom use may be complicated by caffeine ingestion- Kratom use is for his anxiety. - Urine tox screen is negative - Alkalinizing therapy as below - Poison control- recommendations- [place] poison control and they recommended an amp of bicarb every 5 minutes for 2-3 episodes.pH of 7.5-7.55 (DONE in [facility])- initiate NACHO3 Infusion. - on arrival to ICU PH 7.57 and QRS interval 0.134- NAHCO3 infusion until QRS interval is <01.2 and/or PH goes above 6.0. - IF QRS interval does not decrease with above therapy - consider Cardiology consultation to eval for underlying structural pathology - Neurology consult completed -Advised to not drive until cleared by neurology Cardiac - Abnormal ECG - Patient wit ND prolonged QRS (0.134) and QTc (462) @2351- optimize potassium and magnesium -Finish latest bicarbonate bag and then discontinue -Echo completed cardiology consult ordered per primary Respiratory - No acute needs GI - NO acute needs RENAL/LYTES - Hypokalemia, Hypomagnesemia: Resolved - No acute needs ENDO - No acute needs HEME - No acute needs ID - No current concerns for infection LINES/IV ACCESS - PIV Continue use of these lines DVT PROPHYLAXIS - SCDS DISPO: Patient stable for downgrade out of ICU Admission and Anticipated Discharge Date Admission Date: April 04, 2023 Subjective Feels better. Reports he consumes at least 400 mg of caffeine a day however he feels that he needs to decrease this consumption as it is not making him feel good. Physical Exam Physical Exam: General: Alert. nontoxic. Skin: Warm, dry, Head: Atraumatic Ears, nose, mouth and throat: airway patent Cardiovascular: Normal peripheral perfusion Respiratory: no respiratory distress Gastrointestinal: Non distended Musculoskeletal: No deformity Results & Data Results & Data Vital Signs (Past 12 Hours) Vital Signs Temp Pulse Pulse Resp BP BP Pulse Ox 04/05/23 08:00 85 20 99 04/05/23 08:00 122/81 04/05/23 07:00 74 13 98 04/05/23 06:45 61 16 98 04/05/23 08:46 04/05/23 08:00 77 04/05/23 06:00 77 12 100 04/05/23 06:00 118/71 04/05/23 05:00 65 16 97 04/05/23 05:00 111/56 L 04/05/23 04:00 69 15 99 04/05/23 04:00 113/58 L 04/05/23 03:00 75 21 96 04/05/23 03:00 123/68 04/05/23 02:00 84 18 98 04/05/23 02:00 108/81 04/05/23 04:00 36.8 C 04/05/23 01:00 91 H 15 99 04/05/23 01:00 142/85 H 04/05/23 00:57 95 H 16 100 04/05/23 00:57 147/91 H 04/05/23 00:51 142/100 H 04/05/23 00:51 94 H 16 99 04/05/23 00:30 97 H 21 99 04/05/23 00:30 128/91 04/05/23 01:34 95 H 04/05/23 00:49 36.8 C 04/05/23 00:49 04/05/23 00:49 36.7 C 102 H 20 146/85 H 100 04/05/23 00:13 93 H 16 132/89 96 04/04/23 23:41 102 H 21 143/85 H 99 04/04/23 21:54 109 H 18 145/89 H 99 Pulse Ox O2 Del Method O2 Del Method 04/05/23 08:00 04/05/23 08:00 04/05/23 07:00 04/05/23 06:45 04/05/23 08:46 Room Air 04/05/23 08:00 04/05/23 06:00 04/05/23 06:00 04/05/23 05:00 04/05/23 05:00 04/05/23 04:00 04/05/23 04:00 04/05/23 03:00 04/05/23 03:00 04/05/23 02:00 04/05/23 02:00 04/05/23 04:00 04/05/23 01:00 04/05/23 01:00 04/05/23 00:57 04/05/23 00:57 04/05/23 00:51 04/05/23 00:51 04/05/23 00:30 04/05/23 00:30 04/05/23 01:34 04/05/23 00:49 04/05/23 00:49 98 Room Air 04/05/23 00:49 Room Air 04/05/23 00:13 Room Air 04/04/23 23:41 Room Air 04/04/23 21:54 Room Air Critical Care Results & Data Vital Signs (Past 12 Hours) Vital Signs Temp Pulse Pulse Resp BP BP Pulse Ox 04/05/23 08:00 85 20 99 04/05/23 08:00 122/81 04/05/23 07:00 74 13 98 04/05/23 06:45 61 16 98 04/05/23 08:46 04/05/23 08:00 77 04/05/23 06:00 77 12 100 04/05/23 06:00 118/71 04/05/23 05:00 65 16 97 04/05/23 05:00 111/56 L 04/05/23 04:00 69 15 99 04/05/23 04:00 113/58 L 04/05/23 03:00 75 21 96 04/05/23 03:00 123/68 04/05/23 02:00 84 18 98 04/05/23 02:00 108/81 04/05/23 04:00 36.8 C 04/05/23 01:00 91 H 15 99 04/05/23 01:00 142/85 H 04/05/23 00:57 95 H 16 100 04/05/23 00:57 147/91 H 04/05/23 00:51 142/100 H 04/05/23 00:51 94 H 16 99 04/05/23 00:30 97 H 21 99 04/05/23 00:30 128/91 04/05/23 01:34 95 H 04/05/23 00:49 36.8 C 04/05/23 00:49 04/05/23 00:49 36.7 C 102 H 20 146/85 H 100 04/05/23 00:13 93 H 16 132/89 96 04/04/23 23:41 102 H 21 143/85 H 99 04/04/23 21:54 109 H 18 145/89 H 99 Pulse Ox O2 Del Method O2 Del Method 04/05/23 08:00 04/05/23 08:00 04/05/23 07:00 04/05/23 06:45 04/05/23 08:46 Room Air 04/05/23 08:00 04/05/23 06:00 04/05/23 06:00 04/05/23 05:00 04/05/23 05:00 04/05/23 04:00 04/05/23 04:00 04/05/23 03:00 04/05/23 03:00 04/05/23 02:00 04/05/23 02:00 04/05/23 04:00 04/05/23 01:00 04/05/23 01:00 04/05/23 00:57 04/05/23 00:57 04/05/23 00:51 04/05/23 00:51 04/05/23 00:30 04/05/23 00:30 04/05/23 01:34 04/05/23 00:49 04/05/23 00:49 98 Room Air 04/05/23 00:49 Room Air 04/05/23 00:13 Room Air 04/04/23 23:41 Room Air 04/04/23 21:54 Room Air Lab & Micro Results (Past 24 Hours) RBC 4.31 M/uL (4.70-6.10) L 04/05/23 WBC 7.73 K/ul (4.8-10.8) 04/05/23 Hgb 13.2 g/dl (14.0-18.0) L 04/05/23 Hct 39.3 % (42.0-52.0) L 04/05/23 MCV 91.2 fL (80.0-100.0) 04/05/23 MCH 30.6 pg (25.0-34.0) 04/05/23 MCHC 33.6 g/dL (32.0-36.0) 04/05/23 RDW Standard Deviation 39.8 fL (36.4-46.3) 04/05/23 RDW Coefficient of Variation 11.9 % (11.5-14.5) 04/05/23 Plt Count 264 K/uL (130-400) 04/05/23 MPV 10.8 fL (9.4-12.4) 04/05/23 Neutrophils (%) (Auto) 65.7 % 04/05/23 Lymphocytes (%) (Auto) 26.8 % 04/05/23 Monocytes # (Auto) 0.54 K/uL (0.11-0.59) 04/05/23 Eosinophils # (Auto) 0.00 K/uL (0-0.50) 04/05/23 Immature Granulocyte % (Auto) 0.4 % 04/05/23 Neutrophils # (Auto) 5.08 K/uL (1.40-6.50) 04/05/23 Lymphocytes # (Auto) 2.07 K/uL (1.2-3.4) 04/05/23 Monocytes # (Auto) 0.54 K/uL (0.11-0.59) 04/05/23 Eosinophils # (Auto) 0.00 K/uL (0-0.50) 04/05/23 Basophils # (Auto) 0.01 K/uL (0-0.2) 04/05/23 Immature Granulocyte # (Auto) 0.03 K/uL (0.01-0.20) 3 Na 141 mmol/L (136-145) 04/05/23 K 3.5 mmol/L (3.5-5.1) 04/05/23 Cl 103 mmol/L (98-107) 04/05/23 CO2 32 mmol/L (21-32) 04/05/23 Anion Gap 6 (3-11) 04/05/23 BUN 6 mg/dl (6-23) 04/05/23 Creatinine 0.68 mg/dl (0.6-1.4) 04/05/23 Estimated GFR ( Amer) > 150.0 ml/min 04/05/23 Estimated GFR (Non-Af Amer) 135.6 ml/min 04/05/23 BUN/Creatinine Ratio 8.8 (10-20) L 04/05/23 Glu 106 mg/dl (70-99(Fasting)) H 04/05/23 Ca 8.5 mg/dl (8.6-10.3) L 04/05/23 Phosphorus Level 3.5 mg/dl (2.5-4.9) 04/05/23 Total Bilirubin 0.5 mg/dl (0.2-1.0) 04/04/23 AST 16 U/L (13-39) 04/04/23 ALT 10 U/L (7-52) 04/04/23 Alkaline Phosphatase 67 U/L (34-104) 04/04/23 TP 7.8 gm/dl (6.0-8.3) 04/04/23 Albumin 5.1 gm/dl (3.4-5.0) H 04/04/23 Globulin 2.7 gm/dl (2.5-4.0) 04/04/23 Albumin/Globulin Ratio 1.9 (0.9-2) 04/04/23 Mg 1.9 mg/dl (1.7-2.4) 04/05/23 08:11 Calcium Level 8.5 mg/dl (8.6-10.3) L 04/05/23 08:11 Ionized Calcium 0.98 mmol/L (1.12-1.32) L 04/05/23 01:48 Venous Blood pH 7.41 (7.36-7.41) 04/05/23 08:11 Venous Blood Partial Pressure CO2 49 mmHg (38-50) 04/04/23 22:2 9 Venous Blood Partial Pressure O2 50 mmHg 04/04/23 22:29 Venous Blood HCO3 33 mmol/L 04/04/23 22:29 Venous Blood Base Excess 6.9 mEq/L 04/04/23 22:29 Venous Blood Oxygen Saturation 80.6 % 04/04/23 22:29 Diagnostic Findings (Past 24 Hours) Chest X-Ray 04/04/23 20:41 XR chest 1V portable CLINICAL HISTORY: Seizure. COMPARISON STUDY: No previous studies for comparison. FINDINGS: Lung volumes are normal. Lungs are clear. There is no pneumothorax or pleural effusion. Cardiac size is normal. Mediastinal contours are normal. There is no evidence for pulmonary edema. IMPRESSION: No acute cardiopulmonary findings. ACT 112: Negative or not required by law. Electronically signed by: Kevin Evans M.D. 04/05/2023 7:[address] 04/04/23 20:41 Exam(s): CT HEAD Without Contrast EXAM: CT Head Without Intravenous Contrast CLINICAL HISTORY: Reason for exam: liu. TECHNIQUE: Axial computed tomography images of the head/brain without intravenous contrast. CTDI is 38.78 mGy and DLP is 546.36 mGy-cm. Automated exposure control was utilized for the study. A dose lowering technique was utilized adhering to the principles of ALARA. COMPARISON: No relevant prior studies available. FINDINGS: No acute intracranial hemorrhage. No midline shift or mass effect. The territorial castañeda-white matter differentiation is maintained throughout. The ventricles and sulci are commensurate with age. The visualized orbits appear grossly unremarkable. The calvarium is intact. The visualized paranasal sinuses and mastoid air cells are grossly clear. IMPRESSION: No acute intracranial hemorrhage, midline shift, or mass effect. Electronically signed by: Stewart Tapia MD 04/04/23 22:12 PM I & O Totals 24 Hours 04/04/23 04/05/23 04/06/23 06:59 06:59 06:59 Intake Total 3230.0 / 3230.0 1030 / 1030 Output Total 950 / 950 600 / 600 Balance 2280.0 / 2280.0 430 / 430 Cumulative 04/04/23 19:54 thru 04/05/23 09:30 Intake Total 4260.0 Output Total 1550 Balance 2710.0 RT Ventilator Mngmt (Last Documented) Ventilator Ordered Settings Respiratory Rate 20 04/05/23 08:00 Ventilator - PT Measurements Respiratory Rate 20 Coding Level of Care Code 40125 SUB INP/OBS CARE 3/50MIN Diagnoses Seizure R56.9 Overdose T50.901A Electrolyte abnormality E87.8
[2023-04-05] MEDS: POTASSIUM CHLORIDE CRTAB 20 MEQ TABCR PO SCH ×2 (09:48→22:35)
[2023-04-05] MEDS: MAGNESIUM OXIDE 400 MG TAB PO SCH (09:49)
--- NOTE | 2023-04-05 10:12 | Neurology Consultation ---
Date of Consultation April 05, 2023 Assessment & Plan (1) Seizure: Provoked seizure like episode in the setting of caffeine and kratom. Given the EKG abnormalities noted on arrival, convulsive syncope is also possible. Regardless, as this is provoked, further testing is not indicated. Even an abnormal EEG in this context would not be helpful and we do not recommend starting an anti-epileptic. Please contact us with any further questions. -- No further neurologic workup, can cancel EEG. Telehealth Consultation Telehealth Information Telehealth Information: I performed this visit using a real-time telehealth connection between my location and the patients location ([facility]). After connecting through interactive tele-video, patient was identified by name and date of and/or wristband check.Patient (or authorized healthcare players club representative) was informed that this was a telemedicine visit and it was being conducted confidentially over secure lines. My office door was closed and no one else was present in the room with me.Patient (or authorized healthcare players club representative) provided consent to proceed with the visit, expressed an understanding of privacy and security of the telemedicine visit, and gave permission to have a hospital players club representative in the room in order to assist with the visit and to conduct portions of the visit, as needed. I informed the patient (or authorized healthcare players club representative) that I reviewed their record and presented the opportunity for them to ask any questions regarding the visit today. The patient agreed to participate. History of Present Illness Reason for Consultation: Seizure Requesting Physician: Dr. Perez Attending Physician: Darin Perez MD History of Present Illness Riley Saba is a 22 yo M presenting with a seizure like episode at home for >5 minutes as witnessed by his girlfriend. He reports he was feeling well, playing video games, next thing he remembers is waking up on the couch with his girlfriend calling 911. Reportedly he lost consciousness and was shaking for 5+ minutes. No clear post-ictal confusion, no tongue bite or urinary incontinence. He was drinking energy drinks and using kratom. No history of seizure in the past. No head trauma history, no concussions. Otherwise feels well today beyond some back soreness. Allergies Allergy/AdvReac Type Severity Reaction Status Date / Time No Known Allergies Allergy Unverified 04/04/23 21:31 Home Medications Medication Instructions Recorded Confirmed Type Herbal Dragon Powder 1 dose PO DAILY 04/04/23 04/04/23 History Patient History Social History Smoking Status: Current some day smoker Tobacco Type: E-cigarettes / Vaping Second Hand Exposure: Yes; Do You Dip or Chew Tobacco: No; Tobacco Cessation Education Requested by Patient: No Hx Alcohol Use: No Hx Substance Use: Yes Last Used Substance Other:: This morning Substance Use Type Other:: Kratom Preferred Language: Nigerian Communication Ability: Effective Residential Living Assistant Required: No Beliefs That Will Affect Care: None Current Living Situation Comment: lives w/ GF Other Information That Helps Us Care for You: No Feels Safe at Home: Yes Safety Concerns: Feels Safe At This Time Assistive Devices: None Review of Systems +seizure Physical Exam Neurological Examination: Mental Status: Awake and alert. Oriented to person, place, and time. Fluent. Comprehension intact. Affect appropriate. Cranial Nerves: II: pupils 3/3 to 2/2, gleason grossly intact. III/IV/: Versions intact without nystagmus, no gaze preference. V: Facial sensation symmetric to light touch VII: Facial expression symmetric VIII: Hearing intact to voice IX/X: Palate elevates symmetrically XI: Shoulder shrug symmetric XII: Tongue midline Motor: Strength was symmetric and antigravity throughout. Pronator drift was absent. There were no abnormal movements. Reflexes: Unable to assess over telemedicine Results & Data Vital Signs (Past 12 Hours) Vital Signs Temp Pulse Pulse Resp BP BP Pulse Ox 04/05/23 08:00 85 20 99 04/05/23 08:00 122/81 04/05/23 07:00 74 13 98 04/05/23 06:45 61 16 98 04/05/23 08:46 04/05/23 08:00 77 04/05/23 06:00 77 12 100 04/05/23 06:00 118/71 04/05/23 05:00 65 16 97 04/05/23 05:00 111/56 L 04/05/23 04:00 69 15 99 04/05/23 04:00 113/58 L 04/05/23 03:00 75 21 96 04/05/23 03:00 123/68 04/05/23 02:00 84 18 98 04/05/23 02:00 108/81 04/05/23 04:00 36.8 C 04/05/23 01:00 91 H 15 99 04/05/23 01:00 142/85 H 04/05/23 00:57 95 H 16 100 04/05/23 00:57 147/91 H 04/05/23 00:51 142/100 H 04/05/23 00:51 94 H 16 99 04/05/23 00:30 97 H 21 99 04/05/23 00:30 128/91 04/05/23 01:34 95 H 04/05/23 00:49 36.8 C 04/05/23 00:49 04/05/23 00:49 36.7 C 102 H 20 146/85 H 100 04/05/23 00:13 93 H 16 132/89 96 04/04/23 23:41 102 H 21 143/85 H 99 Pulse Ox O2 Del Method O2 Del Method 04/05/23 08:00 04/05/23 08:00 04/05/23 07:00 04/05/23 06:45 04/05/23 08:46 Room Air 04/05/23 08:00 04/05/23 06:00 04/05/23 06:00 04/05/23 05:00 04/05/23 05:00 04/05/23 04:00 04/05/23 04:00 04/05/23 03:00 04/05/23 03:00 04/05/23 02:00 04/05/23 02:00 04/05/23 04:00 04/05/23 01:00 04/05/23 01:00 04/05/23 00:57 04/05/23 00:57 04/05/23 00:51 04/05/23 00:51 04/05/23 00:30 04/05/23 00:30 04/05/23 01:34 04/05/23 00:49 04/05/23 00:49 98 Room Air 04/05/23 00:49 Room Air 04/05/23 00:13 Room Air 04/04/23 23:41 Room Air Laboratory Results Abnormal lab results 04/04/23 04/04/23 04/04/23 Range/Units 20:05 20:05 22:29 RBC 4.49 L (4.70-6.10) M/uL Hgb 13.6 L (14.0-18.0) g/dl Hct 40.0 L (42.0-52.0) % Lymph # (Auto) 3.74 H (1.2-3.4) K/uL VBG pH 7.43 H (7.36-7.41) Sodium (136-145) mmol/L Potassium 3.1 L (3.5-5.1) mmol/L Carbon Dioxide (21-32) mmol/L Anion Gap 13 H (3-11) BUN/Creatinine Ratio (10-20) Glucose 127 H (70-99(Fasting)) mg/dl POC Glucose (70-99) mg/dl Calcium (8.6-10.3) mg/dl Ionized Calcium (1.12-1.32) mmol/L Albumin 5.1 H (3.4-5.0) gm/dl Urine pH (4.5-7.5) Salicylates (3.0-30) mg/dl Acetaminophen (10-30) ug/ml 04/04/23 04/04/23 04/05/23 Range/Units 22:29 Unknown 00:58 RBC (4.70-6.10) M/uL Hgb (14.0-18.0) g/dl Hct (42.0-52.0) % Lymph # (Auto) (1.2-3.4) K/uL VBG pH (7.36-7.41) Sodium 168 H* D (136-145) mmol/L Potassium 3.4 L (3.5-5.1) mmol/L Carbon Dioxide > 45 H* (21-32) mmol/L Anion Gap (3-11) BUN/Creatinine Ratio (10-20) Glucose (70-99(Fasting)) mg/dl POC Glucose (70-99) mg/dl Calcium 7.2 L (8.6-10.3) mg/dl Ionized Calcium (1.12-1.32) mmol/L Albumin (3.4-5.0) gm/dl Urine pH 8.5 H (4.5-7.5) Salicylates < 3.0 L (3.0-30) mg/dl Acetaminophen < 3 L (10-30) ug/ml 04/05/23 04/05/23 04/05/23 Range/Units 00:58 01:26 01:48 RBC (4.70-6.10) M/uL Hgb (14.0-18.0) g/dl Hct (42.0-52.0) % Lymph # (Auto) (1.2-3.4) K/uL VBG pH 7.57 H (7.36-7.41) Sodium (136-145) mmol/L Potassium (3.5-5.1) mmol/L Carbon Dioxide (21-32) mmol/L Anion Gap (3-11) BUN/Creatinine Ratio (10-20) Glucose (70-99(Fasting)) mg/dl POC Glucose 131 H (70-99) mg/dl Calcium (8.6-10.3) mg/dl Ionized Calcium 0.98 L (1.12-1.32) mmol/L Albumin (3.4-5.0) gm/dl Urine pH (4.5-7.5) Salicylates (3.0-30) mg/dl Acetaminophen (10-30) ug/ml 04/05/23 04/05/23 04/05/23 Range/Units 01:50 03:53 03:53 RBC (4.70-6.10) M/uL Hgb (14.0-18.0) g/dl Hct (42.0-52.0) % Lymph # (Auto) (1.2-3.4) K/uL VBG pH 7.45 H (7.36-7.41) Sodium (136-145) mmol/L Potassium 3.4 L (3.5-5.1) mmol/L Carbon Dioxide (21-32) mmol/L Anion Gap (3-11) BUN/Creatinine Ratio 9.9 L (10-20) Glucose 121 H 113 H (70-99(Fasting)) mg/dl POC Glucose (70-99) mg/dl Calcium 7.7 L 8.0 L (8.6-10.3) mg/dl Ionized Calcium (1.12-1.32) mmol/L Albumin (3.4-5.0) gm/dl Urine pH (4.5-7.5) Salicylates (3.0-30) mg/dl Acetaminophen (10-30) ug/ml 04/05/23 04/05/23 Range/Units 08:11 08:11 RBC 4.31 L (4.70-6.10) M/uL Hgb 13.2 L (14.0-18.0) g/dl Hct 39.3 L (42.0-52.0) % Lymph # (Auto) (1.2-3.4) K/uL VBG pH (7.36-7.41) Sodium (136-145) mmol/L Potassium (3.5-5.1) mmol/L Carbon Dioxide (21-32) mmol/L Anion Gap (3-11) BUN/Creatinine Ratio 8.8 L (10-20) Glucose 106 H (70-99(Fasting)) mg/dl POC Glucose (70-99) mg/dl Calcium 8.5 L (8.6-10.3) mg/dl Ionized Calcium (1.12-1.32) mmol/L Albumin (3.4-5.0) gm/dl Urine pH (4.5-7.5) Salicylates (3.0-30) mg/dl Acetaminophen (10-30) ug/ml Diagnostic Findings Chest X-Ray 04/04/23 20:41 XR chest 1V portable CLINICAL HISTORY: Seizure. COMPARISON STUDY: No previous studies for comparison. FINDINGS: Lung volumes are normal. Lungs are clear. There is no pneumothorax or pleural effusion. Cardiac size is normal. Mediastinal contours are normal. There is no evidence for pulmonary edema. IMPRESSION: No acute cardiopulmonary findings. ACT 112: Negative or not required by law. Electronically signed by: Kevin Evans M.D. 04/05/2023 7:[address] 04/04/23 20:41 Exam(s): CT HEAD Without Contrast EXAM: CT Head Without Intravenous Contrast CLINICAL HISTORY: Reason for exam: liu. TECHNIQUE: Axial computed tomography images of the head/brain without intravenous contrast. CTDI is 38.78 mGy and DLP is 546.36 mGy-cm. Automated exposure control was utilized for the study. A dose lowering technique was utilized adhering to the principles of ALARA. COMPARISON: No relevant prior studies available. FINDINGS: No acute intracranial hemorrhage. No midline shift or mass effect. The territorial castañeda-white matter differentiation is maintained throughout. The ventricles and sulci are commensurate with age. The visualized orbits appear grossly unremarkable. The calvarium is intact. The visualized paranasal sinuses and mastoid air cells are grossly clear. IMPRESSION: No acute intracranial hemorrhage, midline shift, or mass effect. Electronically signed by: Stewart Tapia MD 04/04/23 22:12 PM
--- NOTE | 2023-04-05 10:38 | Cardiology Consultation ---
Date of Consultation April 05, 2023 Assessment & Plan (1) Seizure: (2) Overdose: (3) Electrolyte abnormality: (4) Prolonged QT interval: Plan -Per review of the literature , QT prolongation is a reported potential adverse effect of Kratom. -QRS duration and QT have improved with sodium bicarbonate and potassium replacement. -Echocardiogram reveals no structural heart disease. -Recommend continued supportive care. -Pt counselled to avoid Kratom. -If an alternate prescription agent is necessary for the treatment of his anxiety , would avoid QT prolonging agents such as SSRIs. Perhaps mental health counseling would be a good approach. History of Present Illness Attending Physician: Darin Perez MD History of Present Illness Mr Saba is a 22 year old male seen in cardiology consultation per the request of Dr Perez for the evaluation of prolonged QT interval. Patient interviewed in room 103 at the ICU. He was awake and conversant. He describes that last evening he was playing some games with his girlfriend sitting up on the couch. He reportedly had a loss of conscious episode with foam coming from his mouth, witnessed by his girlfriend who then called 911. He states that when he regained consciousness he recalls her on the phone, and was confused. He has never had anything like this happen to him before. He reports chronically using the supplement Kratom 3 spoons , 3 times per day for the last two years. He purchases it online and uses it for anxiety. He denies using any other substances or supplements. Upon arrival to the emergency department on 04/04/2023 at 2004 EKG revealed sinus tachycardia 113 bpm with a right bundle branch block morphology, QRS duration 142 ms, QT interval 554 ms. Per review of the admission note, the emergency room providers had contacted poison control for a toxicology consultation and it was recommended to administer sodium bicarbonate. The patient subsequently received sodium bicarbonate, potassium replacement, and calcium gluconate. Serial EKGs had since been performed with most recent having been performed at 918 this morning revealing normal sinus rhythm 83 bpm, with a nonspecific intraventricular conduction delay, QRS duration down to 130 ms, and improvement in the QT interval to 495 ms. EKG performed at 4:07 AM included a QT interval of 482 ms. Family History: No history of heart disease or sudden cardiac Believes his grandfather has a siezure. Allergies Allergy/AdvReac Type Severity Reaction Status Date / Time No Known Allergies Allergy Unverified 04/04/23 21:31 Home Medications Medication Instructions Recorded Confirmed Type Herbal Dragon Powder 1 dose PO DAILY 04/04/23 04/04/23 History Patient History Social History Smoking Status: Current some day smoker Tobacco Type: E-cigarettes / Vaping Second Hand Exposure: Yes; Do You Dip or Chew Tobacco: No; Tobacco Cessation Education Requested by Patient: No Hx Alcohol Use: No Hx Substance Use: Yes Last Used Substance Other:: This morning Substance Use Type Other:: Kratom Preferred Language: Uzbek Communication Ability: Effective Frame Operator Required: No Beliefs That Will Affect Care: None Current Living Situation Comment: lives w/ GF Other Information That Helps Us Care for You: No Feels Safe at Home: Yes Safety Concerns: Feels Safe At This Time Assistive Devices: None Review of Systems Review of Systems: All systems reviewed & are unremarkable except as noted in HPI & below Physical Exam Physical Exam: Temp Pulse Resp BP Pulse Ox O2 Del Method 36.8 C 85 20 122/81 99 Room Air 04/05/23 04:00 04/05/23 08:00 04/05/23 08:00 04/05/23 08:00 04/05/23 08:00 04/05/23 08:46 Constitutional: WD/WN, vitals as above Eyes: PERRL, conjunctivae normal, anicteric sclerae Respiratory: normal respiratory effort, lungs clear to auscultation Cardiovascular: RRR, no murmur, no edema Gastrointestinal (Abdomen): normal bowel sounds, soft, nontender, no hepatosplenomegaly Neurologic: PERRL, EOMI, accommodation nl, no face palsy, no dysarthria Psychiatric: A+Ox3, euthymic affect Results & Data Laboratory Results Cardiac Enzymes 04/04/23 04/05/23 04/05/23 Range/Units 20:05 00:58 00:58 AST 16 (13-39) U/L Troponin I High Sens 3.1 Cancelled 9.1 D (0-20) pg/ml 04/05/23 Range/Units 08:11 AST (13-39) U/L Troponin I High Sens 5.3 (0-20) pg/ml CBC 04/04/23 04/05/23 Range/Units 20:05 08:11 WBC 8.31 7.73 (4.8-10.8) K/ul RBC 4.49 L 4.31 L (4.70-6.10) M/uL Hgb 13.6 L 13.2 L (14.0-18.0) g/dl Hct 40.0 L 39.3 L (42.0-52.0) % Plt Count 360 264 (130-400) K/uL Neut # (Auto) 4.03 5.08 (1.40-6.50) K/uL Lymph # (Auto) 3.74 H 2.07 (1.2-3.4) K/uL [place] # (Auto) 0.43 0.54 (0.11-0.59) K/uL Eos # (Auto) 0.00 0.00 (0-0.50) K/uL Baso # (Auto) 0.03 0.01 (0-0.2) K/uL Comprehensive Metabolic Panel 04/04/23 04/05/23 04/05/23 Range/Units 20:05 00:58 01:50 Sodium 140 168 H* D 143 D (136-145) mmol/L Potassium 3.1 L 3.4 L 3.4 L (3.5-5.1) mmol/L Chloride 102 105 105 (98-107) mmol/L Carbon Dioxide 25 > 45 H* 31 (21-32) mmol/L BUN 10 9 8 (6-23) mg/dl Creatinine 0.94 0.70 0.79 (0.6-1.4) mg/dl Glucose 127 H 97 121 H (70-99(Fasting)) mg/dl Calcium 8.8 7.2 L 7.7 L (8.6-10.3) mg/dl AST 16 (13-39) U/L ALT 10 (7-52) U/L Alkaline Phosphatase 67 (34-104) U/L Total Protein 7.8 (6.0-8.3) gm/dl Albumin 5.1 H (3.4-5.0) gm/dl 04/05/23 04/05/23 Range/Units 03:53 08:11 Sodium 141 141 (136-145) mmol/L Potassium 3.6 3.5 (3.5-5.1) mmol/L Chloride 104 103 (98-107) mmol/L Carbon Dioxide 29 32 (21-32) mmol/L BUN 7 6 (6-23) mg/dl Creatinine 0.71 0.68 (0.6-1.4) mg/dl Glucose 113 H 106 H (70-99(Fasting)) mg/dl Calcium 8.0 L 8.5 L (8.6-10.3) mg/dl AST (13-39) U/L ALT (7-52) U/L Alkaline Phosphatase (34-104) U/L Total Protein (6.0-8.3) gm/dl Albumin (3.4-5.0) gm/dl
[2023-04-05 12:18] LABS: Anion Gap 9 (3-11); BUN Creatinine Ratio 8.1 (10-20); Blood Urea Nitrogen 5 mg/dl (6-23); Calcium 8.6 mg/dl (8.6-10.3); Carbon Dioxide 28 mmol/L (21-32); Chloride 104 mmol/L (98-107); Creatinine Clr Calc Pharmacy 137.7 ml/min; Est GFR (African American) > 150.0 ml/min; Est GFR (Non-African American) 140.8 ml/min; Glucose 119 mg/dl (70-99(Fasting)); Potassium 3.9 mmol/L (3.5-5.1); Sodium 141 mmol/L (136-145)
--- NOTE | 2023-04-05 14:06 | Electroencephalogram ---
EEG Procedure Note Date of Service April 05, 2023 Start / End Times Start Time: 10:21 End Time: 10:[address] Bean Weinstein History A 22 year old male with new onset seizure. EEG performed for evaluation of epileptiform actvity. Home Medication List Medication Instructions Recorded Confirmed Type Herbal Dragon Powder 1 dose PO DAILY 04/04/23 04/04/23 History Inpatient Medication List Sodium Bicarbonate 150 meq/ (Dextrose) 1,150 mls @ 200 mls/hr IV .Q5H45M QIAN Stop: 04/05/23 15:00 Last Admin: 04/05/23 09:14 Dose: 200 mls/hr Documented By: Infusion: 04/05/23 09:00 Dose: 200 mls/hr Documented By: Infusion: 04/05/23 05:51 Dose: 200 mls/hr Documented By: Infusion: 04/05/23 02:58 Dose: 150 mls/hr Documented By: Infusion: 04/05/23 01:55 Dose: 0 mls/hr Documented By: Admin: 04/05/23 01:20 Dose: 150 mls/hr Documented By: CHACHA Magnesium Oxide (Magnesium Oxide 400 Mg Tab) 400 mg PO QAM QIAN Stop: 05/05/23 09:44 Last Admin: 04/05/23 09:49 Dose: 400 mg Documented By: MIGEL Potassium Chloride (Potassium Chloride Crtab 20 Meq Tabcr) 40 meq PO BID QIAN Stop: 04/05/23 21:01 Last Admin: 04/05/23 09:48 Dose: 40 meq Documented By: MIGEL Discontinued Medications Magnesium Sulfate/Dextrose (Magnesium Sulfate / D5w) 1 gm in 100 mls @ 100 mls/hr IV Q1H QIAN Stop: 04/04/23 22:39 Last Infusion: 04/04/23 23:25 Dose: 0 mls/hr Documented By: Admin: 04/04/23 22:19 Dose: 100 mls/hr Documented By: Infusion: 04/04/23 22:18 Dose: 0 mls/hr Documented By: Admin: 04/04/23 21:16 Dose: 100 mls/hr Documented By: CC Sodium Chloride (Nss 1000ml) 2,000 mls @ 999 mls/hr IV .Q2H1M ONE Stop: 04/04/23 22:44 Last Infusion: 04/05/23 00:13 Dose: 0 mls/hr Documented By: Admin: 04/04/23 21:12 Dose: 999 mls/hr Documented By: ANJANA Potassium Chloride (K Alphonso / Wtr) 10 meq in 100 mls @ 100 mls/hr IV Q1H QIAN Stop: 04/05/23 00:14 Last Infusion: 04/05/23 01:58 Dose: 0 mls/hr Documented By: Admin: 04/05/23 00:11 Dose: 100 mls/hr Documented By: Infusion: 04/04/23 23:25 Dose: 0 mls/hr Documented By: Admin: 04/04/23 22:21 Dose: 100 mls/hr Documented By: ANJANA Magnesium Sulfate/Dextrose (Magnesium Sulfate / D5w) 1 gm in 100 mls @ 50 mls/hr IV ONE ONE Stop: 04/05/23 01:44 Last Infusion: 04/05/23 03:15 Dose: 0 mls/hr Documented By: Admin: 04/05/23 01:01 Dose: 50 mls/hr Documented By: CHACHA Sodium Chloride (Nss 1000ml) 1,000 mls @ 125 mls/hr IV .Q8H [facility] Stop: 04/05/23 16:48 Last Admin: 04/05/23 01:57 Dose: Not Given Documented By: CHACHA Calcium Gluconate 1,000 mg/ (Dextrose) 60 mls @ 240 mls/hr IV NOW ONE Stop: 04/05/23 02:44 Last Infusion: 04/05/23 02:58 Dose: 0 mls/hr Documented By: Admin: 04/05/23 02:32 Dose: 240 mls/hr Documented By: CHACHA Potassium Chloride (Potassium Chloride Crtab 20 Meq Tabcr) 40 meq PO NOW STA Stop: 04/04/23 22:10 Last Admin: 04/04/23 22:20 Dose: 40 meq Documented By: ANJANA Potassium Chloride (Potassium Chloride Crtab 20 Meq Tabcr) 40 meq PO NOW STA Stop: 04/05/23 02:11 Last Admin: 04/05/23 02:32 Dose: 40 meq Documented By: CHACHA Potassium Chloride (Potassium Chloride Crtab 20 Meq Tabcr) 40 meq PO NOW STA Stop: 04/05/23 05:42 Last Admin: 04/05/23 05:51 Dose: 40 meq Documented By: JT Sodium Bicarbonate (Sodium Bicarb 8.4% Inj 50 Meq/50 Ml Syr) 50 meq IV NOW STA Stop: 04/04/23 20:41 Last Admin: 04/04/23 21:12 Dose: 50 meq Documented By: CC Sodium Bicarbonate (Sodium Bicarb 8.4% Inj 50 Meq/50 Ml Syr) 50 meq IV NOW STA Stop: 04/04/23 20:55 Last Admin: 04/04/23 21:18 Dose: 50 meq Documented By: CC Sodium Bicarbonate (Sodium Bicarb 8.4% Inj 50 Meq/50 Ml Syr) 50 meq IV NOW STA Stop: 04/04/23 23:10 Last Admin: 04/04/23 23:36 Dose: 50 meq Documented By: ASW Sodium Bicarbonate (Sodium Bicarb 8.4% Inj 50 Meq/50 Ml Syr) 50 meq IV NOW STA Stop: 04/04/23 23:12 Last Admin: 04/04/23 23:43 Dose: 50 meq Documented By: ASW Sodium Bicarbonate (Sodium Bicarb 8.4% Inj 50 Meq/50 Ml Syr) 50 meq IV NOW STA Stop: 04/05/23 01:02 Last Admin: 04/05/23 01:20 Dose: 50 meq Documented By: JT Sodium Bicarbonate (Sodium Bicarb 8.4% Inj 50 Meq/50 Ml Syr) 50 meq IV NOW STA Stop: 04/05/23 05:44 Last Admin: 04/05/23 05:51 Dose: 50 meq Documented By: JT Sodium Bicarbonate (Sodium Bicarb 8.4% Inj 50 Meq/50 Ml Syr) Confirm Administered Dose 50 meq IV .[facility] ONE Stop: 04/05/23 05:50 Last Admin: 04/05/23 05:51 Dose: Not Given Documented By: JT Description This is a 21 electrode EEG with a single channel dedicated to limited EKG. The electrodes were placed in accordance with the International 10-20 system. REPORT: At the onset of the EEG the patient is drowsy. The background is symmetric and continuous. The posterior dominant rhythm is 7 Hz. Drowsiness is characterized by theta activity, reduce blink rate, and reduce myogenic artifact. Stage II sleep is characterized by sleep spindles, vertex waves, and K complexes. Interpretation IMPRESSION: This is a normal drowsy and asleep routine EEG. No epileptiform discharges are seen. A repeat EEG as outpatient when patient is more awake may be beneficial to better characterize the awake state.
[2023-04-05] MEDS ORDERED: LORazepam 0.5 MG TAB PO PRN (14:59)
[2023-04-05] MEDS ORDERED: LORazepam 2 MG/1 ML VIAL IV STA (14:59)
[2023-04-05] MEDS ORDERED: [UNRECOGNIZED DRUG - REMARK] ONE (15:00)
--- NOTE | 2023-04-05 15:50 | Hospitalist Progress Note ---
Date of Service April 05, 2023 Assessment & Plan (1) Seizure: (2) Prolonged QT interval: Plan: likely secondary to Kratom intake CT head: essentially normal no recurrence of seizure discussed with Neuro, does not recommend EEG or antiepileptics completed Sodium Bicarb, coordinated with Poison control service QTc prolongation resolved Echo: unremarkable Counter Sales Person consulted - no additional testing at this point monitor electrolytes Anxiety reports he take Kratom for anxiety reports difficulties at work, going out/socializing due to anxiety willing to discuss and seek treatment with Behavioral Unit team PRN Ativan ordered Hypokalemia replacement in progress Disposition anticipate d/c home when medically stable Admission and Anticipated Discharge Date Admission Date: April 04, 2023 Subjective ff up for seizure, etc seen resting in bed, patient's mother Jyoti at bedside visiting patient gave permission for his mother to be at the bedside during exam states he feels better compared to yesterday feels somewhat anxious, attributes to possible withdrawal from Kratom no chest pain, dyspnea, palpitations, dizziness no headache, focal neuro symptoms tolerating diet well, but appetite not great no other symptoms Review of Systems Review of Systems: all noted and negative except for above Physical Exam Physical Exam: General- oriented x 3, not in distress, speaks in sentences with no effort or accessory muscle use Eyes- anicteric Neck- no JVD Lungs- clear BS BL Heart- normal rate, regular rhythm; no murmurs Abdomen- normal bowel sounds, nondistended, soft, nontender Extremities- no pretibial edema, no calf tenderness Neuro- alert, oriented x 3; no gross focal neurologic deficits Skin- warm & dry Results & Data Results & Data Vital Signs (Past 12 Hours) Vital Signs Temp Pulse Resp BP Pulse Ox O2 Del Method 04/05/23 15:28 Room Air 04/05/23 15:21 93 H 04/05/23 11:00 84 16 98 04/05/23 11:00 135/77 04/05/23 10:00 71 15 96 04/05/23 10:00 124/73 04/05/23 09:00 95 H 20 89 L 04/05/23 09:00 138/99 04/05/23 11:59 84 04/05/23 08:00 85 20 99 04/05/23 08:00 122/81 04/05/23 07:00 74 13 98 04/05/23 06:45 61 16 98 04/05/23 08:46 Room Air 04/05/23 08:00 77 04/05/23 06:00 77 12 100 04/05/23 06:00 118/71 04/05/23 05:00 65 16 97 04/05/23 05:00 111/56 L 04/05/23 04:00 69 15 99 04/05/23 04:00 113/58 L 04/05/23 04:00 36.8 C all noted and reviewed including below
[2023-04-05 16:38] LABS: Anion Gap 6 (3-11); BUN Creatinine Ratio 7.6 (10-20); Blood Urea Nitrogen 5 mg/dl (6-23); Calcium 8.4 mg/dl (8.6-10.3); Carbon Dioxide 28 mmol/L (21-32); Chloride 105 mmol/L (98-107); Creatinine Clr Calc Pharmacy 129.4 ml/min; Est GFR (African American) > 150.0 ml/min; Est GFR (Non-African American) 137.2 ml/min; Glucose 113 mg/dl (70-99(Fasting)); Potassium 3.9 mmol/L (3.5-5.1); Sodium 139 mmol/L (136-145)
--- NOTE | 2023-04-05 19:00 | Electrocardiogram Report ---
Test Reason : Blood Pressure : / mmHG Vent. Rate : 113 BPM Atrial Rate : 113 BPM P-R Int : 152 ms QRS Dur : 142 ms QT Int : 404 ms P-R-T Axes : 000 069 064 degrees QTc Int : 554 ms Sinus tachycardia Right bundle branch block Abnormal ECG No previous ECGs available Confirmed by Valentin Fishman ([id number]) on 04/05/2023 7:00:26 PM Referred By: REFERRED SELF Confirmed By:Romulo Fishman
--- NOTE | 2023-04-05 19:01 | Electrocardiogram Report ---
Test Reason : Blood Pressure : / mmHG Vent. Rate : 109 BPM Atrial Rate : 109 BPM P-R Int : 174 ms QRS Dur : 144 ms QT Int : 370 ms P-R-T Axes : 056 062 054 degrees QTc Int : 498 ms Sinus tachycardia Possible Left atrial enlargement Right bundle branch block T wave abnormality, consider inferior ischemia Abnormal ECG When compared with ECG of 04-APR-2023 20:05, (unconfirmed) No significant change was found Confirmed by Valentin Fishman ([id number]) on 04/05/2023 7:01:13 PM Referred By: REFERRED SELF Confirmed By:Romulo Fishman
--- NOTE | 2023-04-05 19:24 | Electrocardiogram Report ---
Test Reason : Blood Pressure : / mmHG Vent. Rate : 099 BPM Atrial Rate : 099 BPM P-R Int : 202 ms QRS Dur : 140 ms QT Int : 396 ms P-R-T Axes : 065 062 055 degrees QTc Int : 508 ms Normal sinus rhythm Possible Left atrial enlargement Right bundle branch block Abnormal ECG When compared with ECG of 04-APR-2023 21:50, (unconfirmed) No significant change was found Confirmed by Valentin Fishman ([id number]) on 04/05/2023 7:24:08 PM Referred By: REFERRED SELF Confirmed By:Romulo Fishman
--- NOTE | 2023-04-05 19:24 | Electrocardiogram Report ---
Test Reason : Blood Pressure : / mmHG Vent. Rate : 080 BPM Atrial Rate : 080 BPM P-R Int : 200 ms QRS Dur : 136 ms QT Int : 424 ms P-R-T Axes : 077 066 054 degrees QTc Int : 489 ms Normal sinus rhythm Possible Left atrial enlargement Right bundle branch block Abnormal ECG When compared with ECG of 05-APR-2023 00:48, (unconfirmed) No significant change was found Confirmed by Valentin Fishman ([id number]) on 04/05/2023 7:24:17 PM Referred By: REFERRED SELF Confirmed By:Romulo Fishman
--- NOTE | 2023-04-05 19:27 | Electrocardiogram Report ---
Test Reason : Blood Pressure : / mmHG Vent. Rate : 083 BPM Atrial Rate : 083 BPM P-R Int : 178 ms QRS Dur : 130 ms QT Int : 422 ms P-R-T Axes : 075 061 063 degrees QTc Int : 495 ms Normal sinus rhythm Possible Left atrial enlargement Right bundle branch block Abnormal ECG When compared with ECG of 05-APR-2023 04:07, (unconfirmed) No significant change was found Confirmed by Valentin Fishman ([id number]) on 04/05/2023 7:26:43 PM Referred By: REFERRED SELF Confirmed By:Romulo Fishman
--- NOTE | 2023-04-05 19:27 | Electrocardiogram Report ---
Test Reason : Blood Pressure : / mmHG Vent. Rate : 069 BPM Atrial Rate : 069 BPM P-R Int : 198 ms QRS Dur : 130 ms QT Int : 450 ms P-R-T Axes : 073 065 065 degrees QTc Int : 482 ms Normal sinus rhythm Possible Left atrial enlargement Right bundle branch block Abnormal ECG When compared with ECG of 05-APR-2023 02:53, (unconfirmed) No significant change was found Confirmed by Valentin Fishman ([id number]) on 04/05/2023 7:27:12 PM Referred By: REFERRED SELF Confirmed By:Romulo Fishman
--- NOTE | 2023-04-05 19:53 | Electrocardiogram Report ---
Test Reason : Blood Pressure : / mmHG Vent. Rate : 096 BPM Atrial Rate : 096 BPM P-R Int : 202 ms QRS Dur : 134 ms QT Int : 366 ms P-R-T Axes : 071 073 046 degrees QTc Int : 462 ms Normal sinus rhythm Possible Left atrial enlargement Right bundle branch block Abnormal ECG When compared with ECG of 04-APR-2023 23:51, (unconfirmed) No significant change was found Confirmed by Valentin Fishman ([id number]) on 04/05/2023 7:52:37 PM Referred By: REFERRED SELF Confirmed By:Romulo Fishman
--- NOTE | 2023-04-05 19:53 | Electrocardiogram Report ---
Test Reason : Blood Pressure : / mmHG Vent. Rate : 089 BPM Atrial Rate : 089 BPM P-R Int : 160 ms QRS Dur : 130 ms QT Int : 416 ms P-R-T Axes : 073 056 054 degrees QTc Int : 506 ms Normal sinus rhythm Possible Left atrial enlargement Right bundle branch block Nonspecific T wave abnormality Abnormal ECG When compared with ECG of 05-APR-2023 09:18, (unconfirmed) No significant change was found Confirmed by Valentin Fishman ([id number]) on 04/05/2023 7:52:34 PM Referred By: REFERRED SELF Confirmed By:Romulo Fishman
[2023-04-05 21:00] LABS: Anion Gap 6 (3-11); BUN Creatinine Ratio 8.7 (10-20); Blood Urea Nitrogen 6 mg/dl (6-23); Calcium 8.5 mg/dl (8.6-10.3); Carbon Dioxide 26 mmol/L (21-32); Chloride 107 mmol/L (98-107); Creatinine Clr Calc Pharmacy 123.7 ml/min; Est GFR (African American) > 150.0 ml/min; Est GFR (Non-African American) 134.8 ml/min; Glucose 110 mg/dl (70-99(Fasting)); Potassium 4.4 mmol/L (3.5-5.1); Sodium 139 mmol/L (136-145)
[2023-04-06 08:36] LABS: Basophils # (auto) 0.02 K/uL (0-0.2); Basophils % (auto) 0.3 %; Hematocrit (blood only) 37.4 % (42.0-52.0); Hemoglobin 12.5 g/dl (14.0-18.0); Immature Granulocytes # (auto) 0.02 K/uL (0.01-0.20); Immature Granulocytes % (auto) 0.3 %; Lymphocytes % (auto) 27.8 %; Mean Corpuscular Hemoglobin 30.6 pg (25.0-34.0); Mean Corpuscular Hgb Conc 33.4 g/dL (32.0-36.0); Mean Corpuscular Volume 91.7 fL (80.0-100.0); Mean Platelet Volume 10.9 fL (9.4-12.4); Monocytes # (auto) 0.39 K/uL (0.11-0.59); Neutrophils # (auto) 4.25 K/uL (1.40-6.50); Neutrophils % (auto) 65.6 %; Platelet Count 244 K/uL (130-400); RDW Coefficient of Variation 11.9 % (11.5-14.5); RDW Standard Deviation 39.9 fL (36.4-46.3); Red Blood Count 4.08 M/uL (4.70-6.10); White Blood Count 6.48 K/ul (4.8-10.8)
[2023-04-06 08:38] LABS: Alanine Aminotransferase 7 U/L (7-52); Albumin Globulin Ratio 1.7 (0.9-2); Albumin Level 4.2 gm/dl (3.4-5.0); Alkaline Phosphatase 50 U/L (34-104); Anion Gap 6 (3-11); Aspartate Aminotransferase 11 U/L (13-39); BUN Creatinine Ratio 15.6 (10-20); Bilirubin,Total 0.7 mg/dl (0.2-1.0); Blood Urea Nitrogen 10 mg/dl (6-23); Calcium 9.1 mg/dl (8.6-10.3); Carbon Dioxide 25 mmol/L (21-32); Chloride 107 mmol/L (98-107); Creatinine Clr Calc Pharmacy 134.4 ml/min; Est GFR (African American) > 150.0 ml/min; Globulin 2.5 gm/dl (2.5-4.0); Glucose 94 mg/dl (70-99(Fasting)); Magnesium 1.8 mg/dl (1.7-2.4); Potassium 4.3 mmol/L (3.5-5.1); Sodium 138 mmol/L (136-145); Total Protein 6.7 gm/dl (6.0-8.3)
[2023-04-06] MEDS: MAGNESIUM OXIDE 400 MG TAB PO SCH (10:43)
--- NOTE | 2023-04-06 10:45 | Electrocardiogram Report ---
Test Reason : Blood Pressure : / mmHG Vent. Rate : 081 BPM Atrial Rate : 081 BPM P-R Int : 156 ms QRS Dur : 118 ms QT Int : 402 ms P-R-T Axes : 064 053 052 degrees QTc Int : 466 ms Normal sinus rhythm Incomplete right bundle branch block Abnormal ECG When compared with ECG of 05-APR-2023 13:51, No significant change was found Confirmed by Valentin Fishman ([id number]) on 04/06/2023 10:45:01 AM Referred By: REFERRED SELF Confirmed By:Romulo Fishman
--- NOTE | 2023-04-06 10:46 | Electrocardiogram Report ---
Test Reason : Blood Pressure : / mmHG Vent. Rate : 072 BPM Atrial Rate : 072 BPM P-R Int : 158 ms QRS Dur : 118 ms QT Int : 416 ms P-R-T Axes : 069 055 056 degrees QTc Int : 455 ms Normal sinus rhythm with sinus arrhythmia Incomplete right bundle branch block Borderline ECG When compared with ECG of 05-APR-2023 22:29, (unconfirmed) No significant change was found Confirmed by Valentin Fishman ([id number]) on 04/06/2023 10:45:46 AM Referred By: REFERRED SELF Confirmed By:Romulo Fishman
--- NOTE | 2023-04-06 10:46 | Electrocardiogram Report ---
Test Reason : Blood Pressure : / mmHG Vent. Rate : 073 BPM Atrial Rate : 073 BPM P-R Int : 164 ms QRS Dur : 122 ms QT Int : 416 ms P-R-T Axes : 070 055 060 degrees QTc Int : 458 ms Normal sinus rhythm Possible Left atrial enlargement Right bundle branch block Borderline ECG When compared with ECG of 05-APR-2023 18:10, (unconfirmed) No significant change was found Confirmed by Valentin Fishman ([id number]) on 04/06/2023 10:45:34 AM Referred By: REFERRED SELF Confirmed By:Romulo Fishman
--- NOTE | 2023-04-06 11:13 | Psychiatric Consultation ---
Date of Consultation April 06, 2023 Impression / Recommendations Impression Diagnostically consistent with generalized anxiety disorder as well as likely substance-induced component from caffeine use and other herbal/recreational substances including Kratum. Acute risk of self-harm is low given denial of SI and motivated to engage with outpatient psychiatry and possibly therapy. Motivational interviewing regarding substance/caffeine/Kratum use and he plans to stop Kratum and reduce caffeine use. Discussed medication treatment options in detail. Discussed risks, benefits and alternatives. Patient would like to start and consented to escitalopram for ESAU. Reviewed side effects including but not limited to: GI, BRUNSON, sexual side effects, and counseled on black box warning of potential for emergence of or increased SI and need to let staff know should this occur or should they feel unsafe. Also discussed importance of seeking emergency care following discharge if this side effect occurs in the future. (1) ESAU (generalized anxiety disorder): (2) Caffeine-induced anxiety disorder: Plan -Start escitalopram 10mg daily for ESAU -Would recheck EKG to ensure QTc remains <500ms after initiation of escitalopram in 1-2 weeks; if QTc becomes >500ms then discontinue escitalopram -Has new follow-up appointment scheduled with outpatient psychiatry at [facility] on 04/25/2023 -Psych liason to provide additional mental health resources including therapy/substance use options if he is interested -Discussed with Dr. Perez Psych History Identifying Data 22 yo man with history of anxiety admitted medically following a seizure. Psychiatry consulted for recommendations for anxiety. Chief Complaint "Over this year anxiety has definitely been picking up". History of Present Illness Edward describes experiencing a seizure while at home leading to hospit alization. He is unsure what caused this but has been using recreational substances including Kratum as well as high amounts of caffeine and herbal supplements that are possibly thought to have played a role. He is motivated to reduce caffeine intake and plans to avoid any further Kratum use. Discussed that he in part uses Kratum to help with anxiety and mood. He's been experiencing anxiety over the last two years but especially worsened this year due to the chaotic environment of his job. He plans to look for a new job but is also interested in starting medication to help with anxiety. Denies any prior psychiatric history, no prior psych med trials, no history of hospitalization, no history of suicide attempts, no access to a gun. Allergies Allergy/AdvReac Type Severity Reaction Status Date / Time No Known Allergies Allergy Unverified 04/04/23 21:31 Home Medications Medication Instructions Recorded Confirmed Type Herbal Dragon Powder 1 dose PO DAILY 04/04/23 04/04/23 History escitalopram oxalate 10 mg tablet 10 mg PO QAM 30 days #30 tabs 04/06/23 Rx Patient History Social History Smoking Status: Current some day smoker Tobacco Type: E-cigarettes / Vaping Second Hand Exposure: Yes; Do You Dip or Chew Tobacco: No; Tobacco Cessation Education Requested by Patient: No Hx Alcohol Use: No Hx Substance Use: Yes Last Used Substance Other:: This morning Substance Use Type Other:: Diogo Preferred Language: Syrian Communication Ability: Effective 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 Beliefs That Will Affect Care: None Current Living Situation Comment: lives w/ GF Other Information That Helps Us Care for You: No Feels Safe at Home: Yes Safety Concerns: Feels Safe At This Time Assistive Devices: None Physical Exam Psychiatric: Orientation: alert and oriented x 3 Apperance: appropriately dressed and appropriately groomed Eye Contact: good eye contact Motor Behavior: no abnormal motor movements Speech: normal rate/rhythm/volume of speech Affect: euthymic affect Mood: + anxious mood; no depressed mood Thought Process: linear/logical thought process Thought Content: reality based without delusions Suicidal Thoughts: denies suicidal thoughts Homicidal Thoughts: denies homicidal thoughts Hallucinations: no auditory hallucinations and no visual hallucinations Cognition: recent memory grossly intact, remote memory grossly intact, attention grossly intact and language grossly intact Estimated Intelligence: consistent with education level Insight: + fair insight Judgment: + fair judgement Vital Signs (Past 24 Hours): Last Vital Signs Temp 36.4 C L 04/06/23 07:58 Pulse 81 04/06/23 07:58 Resp 18 04/06/23 07:58 BP 107/61 04/06/23 07:58 Pulse Ox 98 04/06/23 07:58 O2 Del Method Room Air 04/06/23 07:58 Review of Systems All systems reviewed & are unremarkable except as noted in HPI & below Results & Data (PSY) Laboratory Results Na+ normal Diagnostic Findings QTc just slightly prolonged on EKG 04/06/2023 at 455ms Medications Administered Lorazepam (Lorazepam 0.5 Mg Tab) 0.5 mg PO Q6H PRN PRN Reason: Anxiety Stop: 05/05/23 14:58 Last Admin: 04/05/23 22:34 Dose: 0.5 mg Documented By: JUAN Magnesium Oxide (Magnesium Oxide 400 Mg Tab) 400 mg PO QAM QIAN Stop: 05/05/23 09:44 Last Admin: 04/06/23 10:43 Dose: 400 mg Documented By: Admin: 04/05/23 09:49 Dose: 400 mg Documented By: MIGEL Coding Level of Care Code 82010 IN/OBS CONSULT LVL 3,45M Diagnoses ESAU (generalized anxiety disorder) F41.1 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
--- NOTE | 2023-04-06 11:59 | Cardiology Progress Note ---
Date of Service April 06, 2023 Assessment & Plan (1) Seizure: (2) Overdose: (3) Electrolyte abnormality: (4) Prolonged QT interval: Plan -Repeat EKG performed 04/06/2023 reveals normal sinus rhythm with sinus arrhythmia, incomplete right bundle branch block, QRS duration 118 ms. Corrected QT interval 455 ms (normal). -No prior EKG tracings are available in his DC or [facility] chart with regards to prior tracings. -It appears that he has an incomplete right bundle branch block at baseline, that had progressed to a right bundle branch block at the time of presentation with associated QT interval prolongation that has since improved. -Pt counselled to avoid Kratom. -If an alternate prescription agent is necessary for the treatment of his anxiety , would avoid QT prolonging agents such as SSRIs. Perhaps mental health counseling would be a good approach. -Patient counseled with regards to nonpharmacologic therapy for anxiety including enjoying hobbies, hiking. Admission and Anticipated Discharge Date Admission Date: April 04, 2023 Subjective Patient seen in cardiology follow-up. His brother is at the bedside. He states he feels well. Anxiety levels improved. Telemetry reveals sinus rhythm for the most part at around 100 bpm, overnight rate ranged from 53 bpm to 110 bpm. No other arrhythmias noted. Physical Exam Constitutional: WD/WN, vitals as above Eyes: PERRL, conjunctivae normal, anicteric sclerae Respiratory: normal respiratory effort, lungs clear to auscultation Cardiovascular: RRR, no murmur, no edema Gastrointestinal (Abdomen): normal bowel sounds, soft, nontender, no hepatosplenomegaly Neurologic: PERRL, EOMI, accommodation nl, no face palsy, no dysarthria Psychiatric: A+Ox3, euthymic affect Results & Data Vital Signs (Past 12 Hours) Vital Signs Temp Pulse Pulse Resp BP Pulse Ox O2 Del Method 04/06/23 11:48 36.7 C 79 18 126/73 100 Room Air 04/06/23 07:58 36.4 C L 81 18 107/61 98 Room Air 04/06/23 07:32 64 04/06/23 04:00 36.7 C 80 18 139/79 99 Room Air Laboratory Results Cardiac Enzymes 04/06/23 Range/Units 07:12 AST 11 L (13-39) U/L CBC 04/06/23 Range/Units 07:12 WBC 6.48 (4.8-10.8) K/ul RBC 4.08 L (4.70-6.10) M/uL Hgb 12.5 L (14.0-18.0) g/dl Hct 37.4 L (42.0-52.0) % Plt Count 244 (130-400) K/uL Neut # (Auto) 4.25 (1.40-6.50) K/uL Lymph # (Auto) 1.80 (1.2-3.4) K/uL [place] # (Auto) 0.39 (0.11-0.59) K/uL Eos # (Auto) 0.00 (0-0.50) K/uL Baso # (Auto) 0.02 (0-0.2) K/uL Comprehensive Metabolic Panel 04/05/23 04/05/23 04/05/23 Range/Units 11:42 15:50 20:14 Sodium 141 139 139 (136-145) mmol/L Potassium 3.9 3.9 4.4 (3.5-5.1) mmol/L Chloride 104 105 107 (98-107) mmol/L Carbon Dioxide 28 28 26 (21-32) mmol/L BUN 5 L 5 L 6 (6-23) mg/dl Creatinine 0.62 0.66 0.69 (0.6-1.4) mg/dl Glucose 119 H 113 H 110 H (70-99(Fasting)) mg/dl Calcium 8.6 8.4 L 8.5 L (8.6-10.3) mg/dl AST (13-39) U/L ALT (7-52) U/L Alkaline Phosphatase (34-104) U/L Total Protein (6.0-8.3) gm/dl Albumin (3.4-5.0) gm/dl 04/06/23 Range/Units 07:12 Sodium 138 (136-145) mmol/L Potassium 4.3 (3.5-5.1) mmol/L Chloride 107 (98-107) mmol/L Carbon Dioxide 25 (21-32) mmol/L BUN 10 (6-23) mg/dl Creatinine 0.64 (0.6-1.4) mg/dl Glucose 94 (70-99(Fasting)) mg/dl Calcium 9.1 (8.6-10.3) mg/dl AST 11 L (13-39) U/L ALT 7 (7-52) U/L Alkaline Phosphatase 50 (34-104) U/L Total Protein 6.7 (6.0-8.3) gm/dl Albumin 4.2 (3.4-5.0) gm/dl
[2023-04-06] MEDS ORDERED: ESCITALOPRAM OXALATE 10 MG TAB PO SCH (12:00)
--- NOTE | 2023-04-06 12:28 | Hospitalist Progress Note ---
Date of Service April 06, 2023 Assessment & Plan (1) Seizure: (2) Prolonged QT interval: Plan: likely secondary to Kratom intake CT head: essentially normal no recurrence of seizure discussed with Neuro, does not recommend EEG or antiepileptics completed Sodium Bicarb, coordinated with Poison control service QTc prolongation resolved Echo: unremarkable Orthotics Prosthetics Technician consulted - no additional testing at this point K and Mg replaced repeat levels on ff up with PCP Anxiety reports he takes Kratom for anxiety reports difficulties at work, going out/socializing due to anxiety willing to discuss and seek treatment with Behavioral Unit team PRN Ativan ordered Psych consulted- Dr. Dubose recommends Escitalopram 10mg po daily set up with [facility] for Psych ff up on 04/25/23 Disposition d/c home ff up with PCP in 1 week ff up with Psych - [facility] 04/25/23 plan of care discussed with patient and his mother Jyoti in detail and at length all questions answered they are understanding, agreeable, comfortable with the plan of care Admission and Anticipated Discharge Date Admission Date: April 04, 2023 Subjective ff up for seizure, etc seen resting in bed, comfortable in good spirts states he feels much better overall no chest pain, dyspnea, palpitations, dizziness no headache, nausea ambulating with no problems anxiety is much better today no depression no other symptoms states he is ready for discharge today Review of Systems Review of Systems: all noted and negative except for above Physical Exam Physical Exam: General- oriented x 3, not in distress, speaks in sentences with no effort or accessory muscle use Eyes- anicteric Neck- no JVD Lungs- clear breath sounds bilaterally, no rales/wheezes Heart- normal rate, regular rhythm; no murmurs Abdomen- normal bowel sounds, nondistended, soft, nontender Extremities- no pretibial edema, no calf tenderness Neuro- alert, oriented x 3; no gross focal neurologic deficits Skin- warm & dry Results & Data Results & Data Vital Signs (Past 12 Hours) Vital Signs Temp Pulse Pulse Resp BP Pulse Ox O2 Del Method 04/06/23 11:48 36.7 C 79 18 126/73 100 Room Air 04/06/23 07:58 36.4 C L 81 18 107/61 98 Room Air 04/06/23 07:32 64 04/06/23 04:00 36.7 C 80 18 139/79 99 Room Air all noted and reviewed including below
--- NOTE | 2023-04-06 12:33 | Discharge Summary ---
Discharge Summary Date of Service April 06, 2023 Notes For Next Care Provider Medication Changes From Visit New: Escitalopram 10mg po daily Admission HPI Per Admitting Provider HISTORY OF PRESENT ILLNESS: A 22-year-old male with no past medical history who presents with seizure episode around 07:30 p.m. Was eating dinner when he suddenly was stiff and started shaking his body and was breathing hard.Foaming around mouth. No biting of the tongue or no incontinence during the episode. It lasted for about 6 minutes and he woke up and he was confused. He said when he was in the ambulance, he was more alert and awake. Currently, he is back to his baseline. He is using kratom herbal supplement 3 spoons 3 times a day for 2 years. His potassium was 3.1, magnesium was 1.8. His ethyl alcohol less than 10, salicylate less than 3, acetaminophen less than 3. Urine drug screen is pending. CT of the head was okay. EKG showed wide QRS and prolonged QTc. ER talked to Poison Control and he was given 2 amps of bicarbonate. On repeat EKG, QRS was still widened. Venous blood gas pH was 7.43 and Poison Control recommended to give bicarbonate every 2-3 minutes until QRS is less than 120 and the patient was getting 2 amps of bicarbonate now and repeat EKG . the patient is getting significant bicarbonate will be admitted to ICU. The patient denies any chest pain. No shortness of breath, no cough, no fevers, no headache, no dizziness. Feeling somewhat anxious. No earache, no runny nose, no sore throat. Appetite is okay. Normal bowel and bladder movements. Currently, resting comfortably and hemodynamically stable. He never had seizures in the past. Admission Exam Per Admitting Provider GENERAL: The patient is thin and frail, not in acute distress. VITAL SIGNS: Temperature 37, pulse 102, respiratory rate 21, blood pressure 143/85, oxygen 99% on room air. HEENT: Pupils equal, round and reactive to light. Oral mucosa moist. NECK: No JVD, no neck masses. CARDIOVASCULAR: S1 and S2 heard. Regular rate and rhythm. No murmur, no gallop. RESPIRATORY SYSTEM: Normal AP diameter. No accessory muscle use. No wheezing, no crackles. ABDOMEN: Soft, bowel sounds present, nontender, no distention. CENTRAL NERVOUS SYSTEM: Cranial nerves II-XII grossly intact, nonfocal. EXTREMITIES: No edema, no erythema. Principal Dx & Hospital Course #1 = Principal Diagnosis (1) Seizure: (2) Prolonged QT interval: likely secondary to Kratom intake CT head: essentially normal no recurrence of seizure discussed with Neuro, does not recommend EEG or antiepileptics completed Sodium Bicarb, coordinated with Poison control service QTc prolongation resolved Echo: unremarkable Telesales Agent consulted - no additional testing at this point K and Mg replaced repeat levels on ff up with PCP Anxiety reports he takes Kratom for anxiety reports difficulties at work, going out/socializing due to anxiety willing to discuss and seek treatment with Behavioral Unit team PRN Ativan ordered Psych consulted- Dr. Dubose recommends Escitalopram 10mg po daily set up with [facility] for Psych ff up on 04/25/23 Disposition d/c home ff up with PCP in 1 week ff up with Psych - [facility] 04/25/23 plan of care discussed with patient and his mother Jyoti in detail and at length all questions answered they are understanding, agreeable, comfortable with the plan of care Discharge Exam General- oriented x 3, not in distress, speaks in sentences with no effort or accessory muscle use Eyes- anicteric Neck- no JVD Lungs- clear breath sounds bilaterally, no rales/wheezes Heart- normal rate, regular rhythm; no murmurs Abdomen- normal bowel sounds, nondistended, soft, nontender Extremities- no pretibial edema, no calf tenderness Neuro- alert, oriented x 3; no gross focal neurologic deficits Skin- warm & dry Updated Medication List Medication Instructions Recorded Confirmed Type Herbal Dragon Powder 1 dose PO DAILY 04/04/23 04/04/23 History escitalopram oxalate 10 mg tablet 10 mg PO QAM 30 days #30 tabs 04/06/23 Rx Hospital Stay Data Consultations 04/04/23 22:13 ED Decision to Admit Stat 04/04/23 23:22 Consult Metallurgist Process Routine 04/05/23 07:44 Consult Cardiology Routine 04/05/23 08:00 Consult Neurology Routine 04/05/23 14:33 Consult Psychiatry Routine Diagnostic Imagining Performed 04/04/23 20:41 CT head/brain wo con Stat COMPARISON: No relevant prior studies available. FINDINGS: No acute intracranial hemorrhage. No midline shift or mass effect. The territorial castañeda-white matter differentiation is maintained throughout. The ventricles and sulci are commensurate with age. The visualized orbits appear grossly unremarkable. The calvarium is intact. The visualized paranasal sinuses and mastoid air cells are grossly clear. IMPRESSION: No acute intracranial hemorrhage, midline shift, or mass effect. Electronically signed by: Stewart Tapia MD 04/04/23 22:12 PM Pending Results Patient Have Any Pending Studies at Discharge: No Discharge Instructions Given to Patient (Per Discharging Provider) PLEASE REFER TO YOUR NEW MEDICATION LIST AND FOLLOW INSTRUCTIONS CAREFULLY. YOUR NEW MEDICATION INCLUDE: ESCITALOPRAM (LEXAPRO) - for anxiety PLEASE CALL YOUR PRIMARY CARE PHYSICIAN OR RETURN TO THE ER IF WITH WORSENING OF SYMPTOMS, INCLUDING worsening of anxiety, depression symptoms, chest pain, shortness of breath, dizziness, headache, palpitations, etc CALL 911 IMMEDIATELY IF WITH RECURRENCE OF SEIZURES. FOLLOW UP WITH PRIMARY CARE PHYSICIAN OUTLINED ABOVE. FOLLOW UP WITH OUTPATIENT PSYCHIATRY PROVIDER OUTLINED ABOVE. TAKE CARE. Total Time Total Time Spent Total Time Spent (In Minutes): >30 minutes
== END 2023-04-06 13:04 | disposition home or self-care (01) | DRG 101 ==
LOC: ED 19:58 → 1E 23:03 → SUATTDRO 23:03 → 1E 04-05 00:25 → 2N 04-05 14:08